=== PATIENT | male | born 1945 | race Caucasian/White ===

== ENCOUNTER 2016-11-20 06:56 | Observation (INO) | payer MEDICARE, OTHER ==
[~2016-11-20] VITALS: Ht 177.8 cm; Wt 101.0 kg
[2016-11-20 07:32] LABS: BASO % 0.2 % (0.0-1.0); EOS # 0.1 K/mm3 (0.0-0.50); EOS % 1.5 % (0.0-3.0); LARGE UNSTAINED CELL # 0.1 K/mm3 (0.0-0.4); LARGE UNSTAINED CELL % 1.4 % (0.0-4.0); LYMPH # 1.2 K/mm3 (1.5-4.5); LYMPH % 12.4 % (24.0-44.0); MEAN CORPUSCULAR HEMOGLOBIN 30.8 pg (27.0-33.0); MEAN CORPUSCULAR HGB CONC 33.5 g/dl (32.0-36.5); MEAN CORPUSCULAR VOLUME 91.9 fl (80.0-96.0); MONO # 0.6 K/mm3 (0.0-0.8); MONO % 6.7 % (0.0-5.0); NEUTROPHILS # 6.9 K/mm3 (1.8-7.7); NEUTROPHILS % 77.8 % (36.0-66.0); PLATELET COUNT, AUTOMATED 171 k/mm3 (150-450); WHITE BLOOD COUNT 8.8 K/mm3 (4.0-10.0)
[2016-11-20] MEDS ORDERED: [UNRECOGNIZED DRUG - OTHER] (07:39)
[2016-11-20] MEDS ORDERED: FLUT11IN INH ×2 (07:39→08:03)
[2016-11-20] MEDS ORDERED: K-TA10TA2 PO (07:39)
[2016-11-20] MEDS ORDERED: MONT10TA2 INH (07:39)
[2016-11-20] MEDS ORDERED: ALLO15TA PO (07:39)
[2016-11-20] MEDS ORDERED: VITA50003 PO (07:39)
[2016-11-20] MEDS ORDERED: ASPI32ECTA PO (07:39)
[2016-11-20] MEDS ORDERED: CARI350T20 PO (07:39)
[2016-11-20] MEDS ORDERED: AZIT250T3 PO ×2 (07:39→08:03)
[2016-11-20] MEDS ORDERED: BISO5TAB5 PO (07:39)
[2016-11-20] MEDS ORDERED: SIMV10TA2 PO ×2 (07:39→08:03)
[2016-11-20] MEDS ORDERED: METH4PACK (07:39)
[2016-11-20] MEDS ORDERED: PRIL20CA9 PO (07:39)
[2016-11-20] MEDS ORDERED: SERT50TA PO (07:39)
[2016-11-20 07:54] LABS: ANION GAP 9 MEQ/L (8-16); BLOOD UREA NITROGEN 14 MG/DL (7-18); CALCIUM LEVEL 8.5 MG/DL (8.8-10.2); CARBON DIOXIDE LEVEL 29 MEQ/L (21-32); CHLORIDE LEVEL 106 MEQ/L (98-107); CREATININE FOR GFR 1.09 MG/DL (0.70-1.30); GLOMERULAR FILTRATION RATE > 60.0 (>42); GLUCOSE, FASTING 113 MG/DL (83-110); MAGNESIUM LEVEL 2.3 MG/DL (1.8-2.4); POTASSIUM SERUM 3.6 MEQ/L (3.5-5.1); SODIUM LEVEL 144 MEQ/L (136-145)
[2016-11-20] MEDS ORDERED: ZYLO300T4 PO (07:55)
[2016-11-20] MEDS ORDERED: DRIS50002 PO (08:03)
[2016-11-20] MEDS ORDERED: OMEG100011 PO (08:03)
[2016-11-20] MEDS ORDERED: PROA1AER INH (08:03)
[2016-11-20] MEDS ORDERED: IBUP60TA PO (08:03)
[2016-11-20] MEDS ORDERED: ASPI325T PO (08:03)
[2016-11-20] MEDS ORDERED: MONT10TA2 PO (08:03)
[2016-11-20] MEDS ORDERED: SERT25TA PO (08:03)
[2016-11-20] MEDS ORDERED: CHLO1CAP PO (08:03)
[2016-11-20] MEDS ORDERED: OMEP20CA3 PO (08:03)
[2016-11-20] MEDS ORDERED: NAPR500T2 PO (08:03)
[2016-11-20] MEDS ORDERED: VITMTA PO (08:03)
[2016-11-20] MEDS ORDERED: ACET50TAOT PO (08:03)
--- NOTE | 2016-11-20 08:08 | REP ---
Portable chest x-ray: Single view. History: Syncope. Comparison chest x-ray is from October 07, 2014. Findings: There is right perihilar linear fibrosis again noted. There is some linear fibrosis in the left base as well also unchanged from the comparison study. The lungs are exposed at a relatively low level of inspiration as before. No infiltrate or effusion is seen. Pulmonary vasculature is not increased. Heart is not felt to be enlarged. The thoracic aorta is ectatic and somewhat tortuous, unchanged. Impression: No acute disease. Bilateral parenchymal fibrosis unchanged. Relatively low level of inspiration. Signed by Juan Amin MD 11/20/2016 10:43 A
[2016-11-20] MEDS: ASPIRIN 325 MG TAB PO SCH (09:00)
[2016-11-20] MEDS ORDERED: ALLOPURINOL 300 MG TAB PO SCH (09:00)
[2016-11-20] MEDS ORDERED: ACETAMINOPHEN 500 MG TAB PO PRN (09:30)
[2016-11-20] MEDS ORDERED: ONDANSETRON 4MG/2ML VIAL (J2405) IV PRN (09:30)
[2016-11-20 09:45] VITALS: BP 123/77
[2016-11-20] MEDS: SERTRALINE HCL 25 MG TABLET PO SCH (10:48)
[2016-11-20] MEDS: BISOPROLOL FUMARATE 5 MG TAB PO SCH (10:48)
[2016-11-20] MEDS: OMEPRAZOLE 20 MG CAP PO SCH (10:49)
[2016-11-20] MEDS: ENOXAPARIN 40 MG/0.4 ML SYRINGE (J1650) SC SCH (10:50)
[2016-11-20 12:00] VITALS: BP_SYST 103; BP_SYST 118; BP_SYST 120; BP_DIAS 62; BP_DIAS 65; BP_DIAS 72
[2016-11-20] MEDS: SENOKOT S TAB PO SCH ×2 (12:13→21:02)
[2016-11-20] MEDS ORDERED: AZITHROMYCIN 250 MG TAB PO ONE (14:45)
[2016-11-20] MEDS ORDERED: MECLIZINE 25 MG TABLET PO PRN (14:45)
[2016-11-20 16:00] VITALS: BP 138/79
--- NOTE | 2016-11-20 16:20 | REP ---
CT HEAD WITHOUT CONTRAST: HISTORY: Syncope. There is no intraparenchymal hemorrhage, mass or midline shift. The ventricular system and cortical sulci are dilated consistent with minimal volume loss. There is no extracerebral collection. The visualized sinuses are clear. IMPRESSION: Minimal volume loss. Signed by Quintin Rodríguez MD 11/20/2016 04:20 P
[2016-11-20] MEDS: ALBUTEROL SULFATE 2.5 MG/0.5 ML INH NEB SOLN NEB SCH ×2 (16:25→23:49)
--- NOTE | 2016-11-20 16:25 | REP ---
CAROTID ULTRASOUND: Real-time ultrasound evaluation and duplex Doppler interrogation of the extracranial carotid vasculature is performed. There is mild plaquing and narrowing in both carotid bulbs extending into the internal and external carotid arteries. Luminal narrowing is less than 50%. There is no evidence of hemodynamically significant stenosis of either internal carotid artery. Normal flow velocities are seen. The vertebral arteries demonstrate normal direction of flow. RIGHT LEFT Peak systolic velocity ICA 53.5 cm/s 41.7 cm/s End diastolic velocity ICA 18.4 cm/s 18.7 cm/s Peak systolic velocity CCA 72.8 cm/s 68.2 cm/s Peak systolic velocity ECA 78.4 cm/s 64.5 cm/s ICA/CCA ratio 0.73 0.61 IMPRESSION: Bilateral luminal narrowing of the internal carotid arteries less than 50%. No evidence of hemodynamically significant stenosis. Signed by Dante Gallo MD 11/20/2016 04:17 P
[2016-11-20 18:00] VITALS: BP 126/72
[2016-11-20 20:00] VITALS: BP_SYST 104; BP_SYST 116; BP_SYST 129; BP_DIAS 66; BP_DIAS 73; BP_DIAS 86
[2016-11-20] MEDS: FLUTICASONE HFA 110 MCG 12 GM INHALER (FLOVENT) INH SCH (20:04)
[2016-11-20] MEDS ORDERED: SIMVASTATIN 10 MG TAB PO SCH (21:00)
[2016-11-20] MEDS ORDERED: MONTELUKAST 10 MG TAB PO SCH (21:00)
[2016-11-20] MEDS: LIBRAX PO SCH (21:02)
[2016-11-21] VITALS: BP 118/79
[2016-11-21 04:00] VITALS: BP 117/75
[2016-11-21 05:44] LABS: BASO % 0.1 % (0.0-1.0); EOS % 0.4 % (0.0-3.0); LARGE UNSTAINED CELL # 0.1 K/mm3 (0.0-0.4); LARGE UNSTAINED CELL % 1.9 % (0.0-4.0); LYMPH # 0.7 K/mm3 (1.5-4.5); LYMPH % 10.5 % (24.0-44.0); MEAN CORPUSCULAR HEMOGLOBIN 29.7 pg (27.0-33.0); MEAN CORPUSCULAR HGB CONC 33.2 g/dl (32.0-36.5); MEAN CORPUSCULAR VOLUME 89.3 fl (80.0-96.0); MONO # 0.3 K/mm3 (0.0-0.8); NEUTROPHILS # 5.2 K/mm3 (1.8-7.7); PLATELET COUNT, AUTOMATED 161 k/mm3 (150-450); RED CELL DISTRIBUTION WIDTH 12.8 % (11.5-14.5); WHITE BLOOD COUNT 6.3 K/mm3 (4.0-10.0)
[2016-11-21 05:56] LABS: ANION GAP 8 MEQ/L (8-16); BLOOD UREA NITROGEN 10 MG/DL (7-18); CALCIUM LEVEL 7.7 MG/DL (8.8-10.2); CARBON DIOXIDE LEVEL 26 MEQ/L (21-32); CHLORIDE LEVEL 109 MEQ/L (98-107); CREATININE FOR GFR 0.83 MG/DL (0.70-1.30); GLOMERULAR FILTRATION RATE > 60.0 (>42); GLUCOSE, FASTING 105 MG/DL (83-110); POTASSIUM SERUM 3.4 MEQ/L (3.5-5.1); SODIUM LEVEL 143 MEQ/L (136-145)
[2016-11-21] MEDS: FLUTICASONE HFA 110 MCG 12 GM INHALER (FLOVENT) INH SCH (07:55)
[2016-11-21 08:00] VITALS: BP 120/78
[2016-11-21] MEDS ORDERED: POTASSIUM CHLORIDE 10 MEQ SR TABLET PO ONE (08:00)
[2016-11-21] MEDS ORDERED: SODIUM CHLORIDE 0.9% 1000 ML IV ONE (08:00)
--- NOTE | 2016-11-21 08:59 | ECGEPIP ---
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
[2016-11-21] MEDS ORDERED: AZITHROMYCIN 250 MG TAB PO SCH (09:00)
[2016-11-21] MEDS: SERTRALINE HCL 25 MG TABLET PO SCH (09:08)
[2016-11-21] MEDS: ASPIRIN 325 MG TAB PO SCH (09:08)
[2016-11-21] MEDS: LIBRAX PO SCH (09:08)
[2016-11-21 09:09] VITALS: BP 120/78
[2016-11-21] MEDS: ENOXAPARIN 40 MG/0.4 ML SYRINGE (J1650) SC SCH (09:09)
[2016-11-21] MEDS: OMEPRAZOLE 20 MG CAP PO SCH (09:09)
[2016-11-21] MEDS: BISOPROLOL FUMARATE 5 MG TAB PO SCH (09:09)
[2016-11-21] MEDS: SENOKOT S TAB PO SCH (09:09)
[2016-11-21] MEDS ORDERED: MECL-68 PO (09:14)
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
--- NOTE | 2016-11-22 11:48 | ECHO ---
DATE OF PROCEDURE: 11/20/2016 HEIGHT: 70 inches. WEIGHT: 224 pounds. BODY SURFACE AREA: 2.2 meters squared. REFERRING PHYSICIAN: DR. Ramya Brady. INDICATIONS: Syncope. MEASUREMENTS: 2-D Measurements: RV - 3.7 cm LV - 5.0 cm Septum - 1.2 cm Posterior wall - 1.1 cm Aortic root - 3.8 cm LA - 4.4 cm LVEF - 75% Doppler Measurements: AV - 1.5 meters per second LVOT - 1.1 meters per second LVOT diameter - 2.1 cm MV-E - 100, A -120, E/A ratio 0.8 E prime 7, A prime 13, E/E prime ratio 14.3 PV - 0.8 meters per second Pulmonary artery acceleration time 116 milliseconds PASP - 27 mmHg. COMMENTS: Normal sinus rhythm without intraventricular conduction disturbance. Technically difficult study in light of the patient's body habitus but diagnostically useful information was still obtained. Mildly dilated left atrium but normal left ventricular size. Right heart chamber sizes were also normal. LV wall thickness was upper limits of normal to slightly hypertrophied. On real-time imaging from the parasternal and apical projections wall motion was symmetrical and hyperkinetic. Normal-appearing mitral valvular apparatus and leaflet excursion with no posterior systolic buckling. Three equal size aortic cusps of normal thickness and cusp separation. Mildly dilated aortic root but normal proximal ascending aorta diameter. No apparent intracardiac mass or pericardial effusion. Color flow Doppler study taken from the parasternal and apical projection showed mild aortic, trace mitral and mild tricuspid insufficiency. Guided continuous wave Doppler of his aortic valve showed a normal peak systolic velocity against LV outflow tract obstruction. Pulsed and continuous wave Doppler of his LV inflow tract taken from the apical four-chamber projection showed normal diastolic filling velocities against mitral stenosis. There was more prominent late diastolic/atrial dependent filling pattern. Degree of diastolic dysfunction was confirmed using tissue Doppler of his mitral annulus. His current estimated mean left atrial pressure was mildly elevated at 16 mmHg. Pulsed and continous wave doppler of his pulmonary trunk showed a normal peak systolic velocity against RV outflow tract obstruction. Pulmonary artery acceleration time 116 milliseconds against an elevated pulmonary vascular resistance. CONCLUSIONS: Somewhat technically difficult study. Unable to detect a structural or functional abnormality to account for the patient's syncopal spell. Borderline concentric left ventricle hypertrophy with hyperkinetic wall motion. Mildly dilated left atrium with Doppler evidence of an impairment of LV diastolic function and current estimated mean left atrial pressure was at least mildly increased. Normal right heart chamber sizes and wall motion with current estimated pulmonary atrial pressure upper limits of normal. MTDD
--- NOTE | 2016-11-23 17:16 | DSES ---
DATE OF ADMISSION: 11/20/2016 DATE OF DISCHARGE: 11/21/2016 PRIMARY CARE PROVIDER: Dr. Prerna Gonzalez DISCHARGE DIAGNOSES: Syncope, possibly due to orthostatic hypotension. Vertigo, possibly due to vestibular neuronitis or labyrinthitis. History of hyperuricemia and renal stones. Gastroesophageal reflux disease. Hyperlipidemia. Asthma. Depression. Chronic back pain. Irritable bowel syndrome. Hypertension. DISCHARGE MEDICATIONS: - meclizine 25 mg by mouth twice a day as needed - acetaminophen 500 mg by mouth daily - albuterol sulfate two puff inhalation four times a day as needed - allopurinol 300 mg by mouth every two days - aspirin 325 mg by mouth daily - azithromycin 250 mg by mouth daily - bisoprolol 5 mg by mouth daily - [place] 350 mg by mouth daily - chlordiazepoxide/clidinium one capsule by mouth twice a day - fluticasone two puff inhalation twice a day - Montelukast 10 mg at bedtime - multivitamin one tablet daily - naproxen 500 mg by mouth as needed for pain - [place] 3 fatty acid one capsule by mouth daily - omeprazole 20 mg by mouth daily - sertraline 75 mg by mouth daily - simvastatin 10 mg at bedtime - vitamin D 50,000 units one capsule every two weeks HOSPITAL COURSE: This is a 71-year-old male who presented to the hospital with chief complaints of nausea, dizziness, weakness, followed by syncopal episode. The patient was recently diagnosed with upper respiratory tract infection by primary care provider and has been taking azithromycin at home. He was in his usual state of health when he went to bed. When he woke up on the day of admission, he had symptoms of nausea and dizziness, went back to sleep, woke up about an hour later, was sitting on the side of the bed and then stood up to go to the bathroom and fell down because of dizziness, lightheadedness and his wound him down on the floor and saw him pass out for 1-2 minutes and was brought to the emergency room. In the emergency department (ED), he had a CT scan of the head done, which was negative. He had a chest x-ray done, which did not show any acute disease. He had a carotid ultrasound done, which did not show any hemodynamically significant narrowing. He had an EKG done, which showed sinus rhythm without any abnormality. His orthostatic blood pressures were positive initially on admission, so he received some IV fluids. He was then subsequently admitted to telemetry unit for monitoring. After 24 hours of cardiac monitoring, did not show any cardiac arhythmia. His cardiac enzymes were cycled three times, which did not show any abnormality. He had an echocardiogram done, which did not show any structural or functional abnormality to account for the patient's syncopal spell. There was borderline concentric LVH and hyperkinetic wall motion. There was also some impairment of left ventricular diastolic function. The patient's symptoms resolved spontaneously, so it was felt his symptoms were related to orthostatic hypotension and possible vestibular neuronitis or labyrinthitis related to upper respiratory tract infection. On the day of discharge, the patient's vitals were stable. He was functionally at baseline. PHYSICAL EXAMINATION: VITAL SIGNS: Temperature 97, pulse 74, respiratory rate 18, blood pressure 120/78, pulse oximetry 98% in room air. GENERAL: Patient awake, alert, oriented times three, sitting up in bed in no acute distress. HEENT: Normocephalic, atraumatic. Moist mucous membranes. Anicteric eyes. CHEST: Clear to auscultation. CARDIOVASCULAR: S1, S2 regular. No rub, murmur or gallop. ABDOMEN: Soft, nontender. Bowel sounds present. EXTREMITIES: No edema. LABORATORY DATA: WBC 6.3, hemoglobin 14.1, platelets 161. Sodium 143, potassium 3.4, replaced, chloride 109, bicarbonate 26, BUN 10, creatinine 0.8, glucose 105, calcium 7.7. Cardiac enzymes negative. TSH 1.87. DISPOSITION: The patient is discharged home in stable condition. DISCHARGE INSTRUCTIONS: Patient to followup with primary care provider in 2 weeks. Regular diet. Activity as tolerated.
== END 2016-11-21 12:15 | disposition home or self-care (01) ==
LOC: EDBD 06:56 → M ED 07:37 → M ED INP 09:16 → M PCU 17:51
PROVIDERS: ADMIT Internal Medicine Nephrology; ATTEND Internal Medicine Nephrology
DX: R55 Syncope and collapse (principal); R42 Dizziness and giddiness; I10 Essential (primary) hypertension; E78.4 Other hyperlipidemia; K21.9 Gastro-esophageal reflux disease without esophagitis; J45.909 Unspecified asthma, uncomplicated; F41.9 Anxiety disorder, unspecified; F32.9 Major depressive disorder, single episode, unspecified; M54.5 Low back pain; Z79.82 Long term (current) use of aspirin; Z79.899 Other long term (current) drug therapy; Z87.891 Personal history of nicotine dependence
CPT/HCPCS: 36415; 70450; 71010; 80048; 82550; 82553; 83735; 84443; 84484; 85025; 87804; 93005; 93041; 93306; 93880; 94640; 94760; 96372; 97161; 99285; G0378; G8978; G8979; G8980; J1650

== ENCOUNTER → 2017-01-12 | Outpatient (REF) | payer MEDICARE, OTHER ==
[~2017-01-12] MED LIST: ACET50TAOT PO; ALLO15TA PO; ASPI325T PO; ASPI32ECTA PO; AZIT250T3 PO; BISO5TAB5 PO; CARI350T20 PO; CHLO1CAP PO; DRIS50002 PO; FLUT11IN INH; IBUP60TA PO; K-TA10TA2 PO; MECL-68 PO; METH4PACK; MONT10TA2 INH; MONT10TA2 PO; NAPR500T2 PO; OMEG100011 PO; OMEP20CA3 PO; PRIL20CA9 PO; PROA1AER INH; SERT25TA PO; SERT50TA PO; SIMV10TA2 PO; VITA50003 PO; VITMTA PO; ZYLO300T4 PO; [UNRECOGNIZED DRUG - OTHER]
== END ==
LOC: M LAB REF 15:47
PROVIDERS: ATTEND Surgery
DX: L72.11 Pilar cyst (principal)

== ENCOUNTER → 2017-01-25 | Outpatient (REF) | payer MEDICARE, OTHER | LOC: M LAB REF 12:46 | PROVIDERS: ATTEND Internal Medicine | DX: J02.9 Acute pharyngitis, unspecified (principal) ==

== ENCOUNTER → 2017-09-08 | Outpatient (CLI) | payer MEDICARE, OTHER ==
[2017-09-08 13:51] LABS: PSA SCREENING 0.93 NG/ML (< 4.0)
== END ==
LOC: M SMT 10:18
DX: Z12.5 Encounter for screening for malignant neoplasm of prostate (principal); N20.0 Calculus of kidney
CPT/HCPCS: G0103

== ENCOUNTER → 2018-10-04 | Outpatient (CLI) | payer MEDICARE, OTHER ==
[~2018-10-04] MED LIST changes: +ACET500T15 PO; -ACET50TAOT PO; +ASPI325T25 PO; -ASPI32ECTA PO; +AZIT-12 PO; -AZIT250T3 PO; +CARI1TAB7 PO; -CARI350T20 PO; -CHLO1CAP PO; +CHLO1CAP14 PO; -DRIS50002 PO; +DRIS50003 PO; +IBUP1TAB6 PO; -IBUP60TA PO; +NAPR-885 PO; -NAPR500T2 PO; -PROA1AER INH; +PROAAER10 INH; -VITA50003 PO; +VITA50005 PO; -ZYLO300T4 PO; +ZYLO300T6 PO
== END ==
LOC: M SMT 10:38
PROVIDERS: ATTEND Nurse Practitioner Family
DX: N20.0 Calculus of kidney (principal)
CPT/HCPCS: 36415; G0103

== ENCOUNTER → 2018-10-11 | Outpatient (CLI) | payer MEDICARE, OTHER ==
--- NOTE | 2018-10-11 10:17 | REP ---
Clinical: Nephrolithiasis. Technique: Single supine view of the abdomen and pelvis. Comparison: 09/08/2017. Findings: Bilateral intrarenal calculi (left greater than right) are again appreciated measuring up to approximately 6 mm diameter. Calcifications within the pelvis likely represent phleboliths and appear relatively stable. Further evaluation of the urinary tract system is limited due to overlying bowel gas with diffuse fecal stasis. No bowel obstruction. Skeletal structures demonstrate chronic scoliosis and degenerative changes. Impression: Findings suggest innumerable bilateral intrarenal calculi measuring up to 6 mm. Further evaluation is limited due to overlying fecal stasis. Electronically Signed by Alec Bear MD 10/11/2018 10:09 A
== END ==
LOC: M SMT 09:52
PROVIDERS: ATTEND Nurse Practitioner Family
DX: N20.0 Calculus of kidney (principal)
CPT/HCPCS: 74018; G0463

== ENCOUNTER 2019-04-19 09:09 | Day surgery (SDC) | payer MEDICARE, OTHER ==
[~2019-04-19] VITALS: Ht 177.8 cm; Wt 95.7 kg
[~2019-04-19 09:09] MED LIST changes: -ALLO15TA PO; +ALLO300T2 PO; +ASPI-1 PO; +ASPI-255 PO; -ASPI325T PO; -ASPI325T25 PO; +DICY10CA13 PO; +FLUT22IN INH; +NS 1,000 ML IV ONE; -OMEP20CA3 PO; +OMEP20CA4 PO; +SERT-141 PO; -SERT25TA PO; +SERT25TA85 PO; -SERT50TA PO; +SING10TA32 PO; +ZOLO25TA PO; +[UNRECOGNIZED DRUG - OTHER] PA
[2019-04-19] MEDS ORDERED: LIDOCAINE 2% INJ 100 MG/5 ML SDV (FOR ANES.) As Ordered ONE (09:13)
[2019-04-19] MEDS ORDERED: PROPOFOL 200 MG/20 ML VIAL As Ordered ONE (09:43)
[2019-04-19] MEDS ORDERED: ePHEDrine SULFATE 25 MG/5 ML(5MG/ML) SYRINGE As Ordered ONE (10:50)
--- NOTE | 2019-04-19 11:03 | ROOR ---
Patient Name: Shelton Mancuso Procedure Date: 04/19/2019 10:37 AM Date of : 1945 Age: 74 Room: [facility] Gender: Male Note Status: Finalized Procedure: Total Colonoscopy to Cecum + Biopsy Polypectomy Indications: Colon cancer screening in patient at increased risk: Colorectal cancer in father, High risk colon cancer surveillance: Personal history of colonic polyps, Last colonoscopy: 2014 Providers: Gio Bartlett MD Referring MD: Prerna Gonzalez DO Requesting Provider: Medicines: Monitored Anesthesia Care Complications: No immediate complications. Procedure: Pre-Anesthesia Assessment: - The heart rate, respiratory rate, oxygen saturations, blood pressure, adequacy of pulmonary ventilation, and response to care were monitored throughout the procedure. The Colonoscope was introduced through the anus and advanced to the cecum, identified by appendiceal orifice and ileocecal valve. The colonoscopy was performed without difficulty. The patient tolerated the procedure well. The quality of the bowel preparation was excellent. Findings: The perianal and digital rectal examinations were normal. Non-bleeding internal hemorrhoids were found during retroflexion. The hemorrhoids were small and Grade I (internal hemorrhoids that do not prolapse). A small polyp was found at 30 cm proximal to the anus. The polyp was sessile. The polyp was removed with a jumbo cold forceps. Resection and retrieval were complete. No other significant abnormalities were identified in a careful examination of the remainder of the colon. The exam was otherwise without abnormality on direct and retroflexion views. Impression: - Non-bleeding internal hemorrhoids. - One small polyp at 30 cm proximal to the anus, removed with a jumbo cold forceps. Resected and retrieved. - The examination was otherwise normal on direct and retroflexion views. - The exam was otherwise normal to the cecum. Recommendation: - Patient has a contact number available for emergencies. The signs and symptoms of potential delayed complications were discussed with the patient. Return to normal activities tomorrow. Written discharge instructions were provided to the patient. - High fiber diet. - Discharge patient to home. - Continue present medications. - Await pathology results. - Telephone GI clinic for pathology results in 1 week. - Repeat colonoscopy in 5 years for surveillance. - Return to referring physician. - Check Portal Online for Path Results.([email or web address]) Gio Bartlett MD Gio Bartlett MD 04/19/2019 11:03:30 AM Electronically signed by Gio Bartlett MD Number of Addenda: 0 Note Initiated On: 04/19/2019 10:37 AM Estimated Blood Loss: Estimated blood loss: none.
[2019-04-19 11:21] VITALS: BP 143/79
== END 2019-04-19 11:30 | disposition home or self-care (01) ==
LOC: M OPP 09:09
PROVIDERS: ATTEND Internal Medicine Gastroenterology
DX: Z12.11 Encounter for screening for malignant neoplasm of colon (principal); Z86.010 Personal history of colon polyps; Z80.0 Family history of malignant neoplasm of digestive organs; K64.0 First degree hemorrhoids; D12.5 Benign neoplasm of sigmoid colon; I10 Essential (primary) hypertension; E78.5 Hyperlipidemia, unspecified; M10.9 Gout, unspecified; K58.9 Irritable bowel syndrome, unspecified; K21.9 Gastro-esophageal reflux disease without esophagitis; R42 Dizziness and giddiness; M19.90 Unspecified osteoarthritis, unspecified site; F32.9 Major depressive disorder, single episode, unspecified; J45.909 Unspecified asthma, uncomplicated; Z87.442 Personal history of urinary calculi; Z87.891 Personal history of nicotine dependence; Z88.0 Allergy status to penicillin; Z79.82 Long term (current) use of aspirin; Z79.899 Other long term (current) drug therapy

== ENCOUNTER → 2019-10-03 | Outpatient (CLI) | payer MEDICARE, OTHER ==
[~2019-10-03] MED LIST changes: +BISO5TAB14 PO; -BISO5TAB5 PO; -MECL-68 PO; +MECL1TAB31 PO; -NS 1,000 ML IV ONE; +OMEP1CAP73 PO; -OMEP20CA4 PO; -SIMV10TA2 PO; +SIMV10TA21 PO
--- NOTE | 2019-10-03 11:35 | REPPI ---
Supine abdomen two views for renal calculi: Comparison is 10/11/2018. Multiple bilateral renal calculi are again identified, not significantly changed. There are calcifications inferiorly in the pelvis, likely phleboliths, unchanged. No calcifications are identified along the courses of the right or left ureters. This is unchanged. The bowel gas pattern is normal, unchanged. There is lumbar scoliosis convex right, unchanged. Impression: No interval change. Electronically Signed by Dante Kolb MD 10/03/2019 11:27 A
== END ==
LOC: M PLAIMG 11:17
PROVIDERS: ATTEND Urology
DX: N20.0 Calculus of kidney (principal)

== ENCOUNTER 2020-10-18 17:27 | Emergency (ER) | payer MEDICARE, OTHER ==
[~2020-10-18] VITALS: Ht 177.8 cm; Wt 99.1 kg
[~2020-10-18 17:27] MED LIST changes: +MONT10TA10 INH; +MONT10TA10 PO; -MONT10TA2 INH; -MONT10TA2 PO
--- OUTSIDE RECORDS SUMMARY | 2020-10-18 17:46 | CCD ---
Author Author [facility] Organization [facility] Address Unknown Phone Unavailable Care Team Providers Care Carnival Worker Name Role Phone Jorge White Unavailable PROBLEMS Type Condition ICD9-CM Code ZUT03-BL Code Onset Dates Condition S tatus SNOMED Code Notes Problem Kidney stones N20.0 Active 72558025 Problem Prostate cancer screening Z12.5 Active 207191 002 Problem Kidney stone 592.0 Active 08812814 Problem Prostate cancer screening V76.44 Active 622070 002 ALLERGIES Allergen (clinical drug ingredient) Drug/Non Drug Allergy do cumented on EMR Reaction Allergy Type Onset Date Status Penicillin (For Allergies Use Only) Rash Drug Allerg y Active ENCOUNTERS from 1945 to 2020-10-07 Encounter Location Date Provider Diagnosis [facility] [address] [place] [address] Sep Jorge White Kidney stones N20.0 and Prostate cancer screening Z12.5 IMMUNIZATIONS No Information SOCIAL HISTORY Sex Assigned At : Social History Observation Description Sex Assigned At Unknown Alcohol Screening: Question Answer Notes Did you have a drink containing alcohol in the past year? Ye s Points 1 Interpretation Negative How often did you have six or more drinks on one occas ion in the past year? Never (0 points) How many drinks did you have on a typica l day when you were drinking in the past year? 1 or 2 (0 points) How often did you have a drink containing alcohol in t he past year? Monthly or less (1 point) REASON FOR REFERRAL No Information VITAL SIGNS No information MEDICATIONS Medication SIG (Take, Route, Frequency, Duration) Notes Start Da te End Date Status Simvastatin 10 MG 1 tablet every evening Orally Once a day for 30 day (s) Active Chlordiaz/Clindium 5-2.5 as directed 3 times a day Active Aspirin 325 MG 1 tablet Orally Once a day for 30 day(s) Active Carisoprodol 350 MG 1 tablet as needed Orally as needed Active Flomax 0.4 MG 1 capsule Orally Once a day as needed when passi ng a stone Sep, Active ProAir HFA 108 (90 Base) MCG/ACT 2 puffs Inhalation as needed Active Singulair 10 MG 1 tablet in the evening Orally Once a day for 30 day( s) Active Multivitamins as directed Orally Act tri Vitamin D 1.25 MG 1 tablet Orally every other week for 30 day(s) Not-Taking Allopurinol 300 MG 1 tablet Orally every other day Nov, Not-Taking Hydrochlorothiazide 25 MG 1 tablet Orally Once a day for 30 day(s) Not-Taking Vitamin D3 1000 UNIT 4 capsule Orally every other week for 30 day(s) Active Urocit-K 10 10 MEQ (1080 MG) 1 tablet with meals Orall y Three times a day for 90 day(s) Not-Taking Zoloft 50 MG 1 tablet Orally Once a day for 30 day(s) Active Potassium Citrate 10 MEQ 1 cap(s) Orally Three times a day May, Not-Taking Flovent Diskus 50 MCG/BLIST 1 puff Inhalation as needed Active [place] 3 1000 MG as directed Orally A ctive Bisoprolol Fumarate 5 MG 1 tablet Orally Once a day for 30 day(s) Active Omeprazole 20mg 20mg as directed oral daily Active PROCEDURES No Information RESULTS No Results REASON FOR VISIT appt MEDICAL (GENERAL) HISTORY Type Description Date Medical History Hypertension Medical History Esophageal reflux Medical History IBS Medical History kidney stones Medical History hernia Medical History emphysema Medical History hyperuricemia Surgical History hernia Surgical History nephrectomy Surgical History vasectomy Surgical History cyst removed from scalp x 2 2011 Surgical History colonoscopy w/ polyp removal 2012 Surgical History colonoscopy with multiple polyp removal 02/2015 Surgical History left cataract removal 2010 Hospitalization History surgery related Goals Section No Information Health Concerns No Information MEDICAL EQUIPMENT No Information MENTAL STATUS No Information FUNCTIONAL STATUS No Information ASSESSMENTS Encounter Date Diagnosis Assessment Notes Treatment Notes Treatm ent Clinical Notes Sep, Kidney stones (ICD-10 - N20.0) Sep, Prostate cancer screening (ICD-10 - Z12.5) PLAN OF TREATMENT Treatment Notes Test Name Order Date [facility] Abdomen,Flat Plate (KUB) 2020-10-07 PSA SCREENING 2020-10-07 Next Appt Details Provider Name:Jorge White, 01:45:00 PM, [id number], [place], [address], Insurance Providers Payer Name Payer Address Payer Phone Insured Name Patient Relati onship to Insured Coverage Start Date Coverage End Date MEDICARE Part A and B [address] [facility] [id number] SHANE ESTEVES self [facility] [address] [address] [facility] [phone] ELENITA ESTEVES
--- OUTSIDE RECORDS SUMMARY | 2020-10-18 17:46 | CCD | Continuity of Care Document ---
Author Author Shelton GONZALEZ Organization Unknown Address [phone] [address] Phone [phone] Care Team Providers Care Urologic Nurse Name Role Phone Brannon Sapp MD AUT[facility] Unavailable Prerna Gonzalez DO AUTM Unavailable Brayden Ashley MD AUTM [phone] Jorge White M.D. AUTM [phone] Gio Bartlett MD AUTM [phone] [facility]M Problems Active Problems Provider Date Acute upper respiratory infection Prerna Gonzalez DO Onset: 08/31/2011 Asthma without status asthmaticus Prerna Gonzalez DO Onset: 08/31/2011 Needs influenza immunization Magda Borges FNP Onset: 08/13 Benign hypertensive heart disease without congestive h eart failure Prerna Gonzalez DO Onset: 08/31/2011 Social History Type Date Description Comments Sex Unknown ETOH Use consumes 1-2 glasses of wine per week Tobacco Use Start: Unknown End: Unknown Patient is a former smoker 1/2 PPD X 20 YRS, QUIT 1979 Allergies, Adverse Reactions, Alerts Active Allergies Reaction Severity Comments Date Penicillins rash 09/03/2009 Medications Active Medications SIG Qnty Indications Ordering Provide r Date Vitamin D (Ergocalciferol) 1.25mg (94030 Ut) Capsules take 1 capsule by mouth every other week 6caps Prerna Gonzalez DO 06/17/2020 Aspirin Ec 81mg Tablets DR 1 by mouth every day 30tabs Prerna Gonzalez DO 02/27/2020 Benzonatate 100mg Capsules take two capsule up to three times daily as needed for cough 30caps R05 Chayo Rivas, ANP 08/01/2019 Sertraline HCL 50mg Tablets 1 by mouth every day 90tabs Prerna Gonzalez,DO 05/17/2018 Sertraline HCL 25mg Tablets 1 by mouth every day with the 50mg of sertraline daily 90tabs Ugo Gonzalez,DO 05/17/2018 Tylenol 8 Hour Arthritis Pain 650mg Tablets ER 1 by mouth as needed every 8 hours 90tabs Prerna Gonzalez,DO 02/01/2018 Bentyl 10mg Capsules one by mouth three times a day before meals as needed for ibs 270caps Prerna Gonzalez,DO 08/16/2017 Montelukast Sodium 10mg Tablets 1 by mouth every day 90-tabs Prerna Gonzalez,DO 03/29/2014 Bisoprolol Fumarate 5mg Tablets 1 by by mouth daily 90tabs Prerna Gonzalez,DO 03/12/2014 Benadryl Allergy 25mg Capsules 1 - 2 qd prn Prerna Gonzalez,DO 05/22/2013 Proair HFA 108(90Base) mcg/Act Aer osol 2 puffs four times a day as needed 1units Prerna Gnozalez,DO 11/17/[address] 1 po qd Prerna Gonzalez,DO 03/24/2012 Soma 350mg Tablets 1 by mouth twice a day as needed 60tabs Prerna Gonzalez,DO 10/01/2010 Flovent HFA 110mcg/Act Aerosol 2 puff twice a day as needed 12gm Prerna Gonzalez DO 11/25/2009 Simvastatin 10mg Tablets 1 at at bedtime 90tabs Prerna Gonzalez,DO 09/03/2009 Multivitamins Tablets 1 po q d Prerna Gonzalez,DO 09/03/2009 [place]-3 1000mg Capsules 1 po qd Prerna Gonzalez,DO 09/03/2009 Vitamin D3 1000Unit Tablets 1 po qod Prerna Gonzalez,DO 09/03/2009 Meclizine HCL 25mg Tablets one tab by mouth every 8 hours as needed for dizziness 30tabs Prerna Lopez, DO Tamsulosin HCL 0.4mg Capsules 1 daily 1/2 hour after same meal Unknown Medications Administered in Office Medication SIG Qnty Indications Ordering Provider Date Administration Of Flu Vaccine Inj ection Prerna Lisa,DO 07/04/2019 Administration Of Flu Vaccine Inj ectdiane Gonzalez,DO 06/19/2016 Administration Of Flu Vaccine Inj ection Prerna Gonzalez,DO 06/13/2015 Administration Of Flu Vaccine Inj ection Prerna Gonzalez,DO 06/22/2014 Administration Of Flu Vaccine Inj ection Prerna Gonzalez,DO 06/23/2013 Administration Of Flu Vaccine Inj ebonie Gonzalez,DO 06/23/2012 Administration Of Flu Vaccine Inj Magda Youssef,DIRECTOR CASE MANAGEMENT 06/19/2011 Immunizations CPT Code Status Date Vaccine Lot # U-Flu Given 05/27/2020 Influenza,Unspecified [id number] Given 07/04/2019 Influenza Vaccin e Quadrivalent Preser/Antibiotic Free Im Use [id number] U-Flu Given 06/22/2018 Influenza,Unspecified U-PneuC Given 04/07/2017 Prevnar 13 [id number] Given 06/19/2016 Fluvirin Virus Vaccine 55519 01 Q2037 Given 06/13/2015 Fluvirin Virus Vaccine 96600 01 Q2037 Given 06/22/2014 Fluvirin Virus Vaccine 92199 21 Q2037 Given 06/23/2013 Fluvirin Virus Vaccine 93589 Given 04/04/2013 Zoster Vaccine [id number] 15025 Given 10/04/2012 Pneumovax 23 [id number] Q2037 Given 06/23/2012 Fluvirin Virus Vaccine Q2037 Given 06/19/2011 Fluvirin Virus Vaccine 38022 Refused 07/09/2020 Shingrix Zoster Vaccine (HZV), Recombinant, Subunit, Adjuvanted U-Td Refused 07/09/2020 Td(Adult)(Tetanus, Diphtheri a) unspecified 36743 Refused 07/04/2019 Tetanus/Diptheria(Td)Toxoids Preservative Free 18868 Refused 07/04/2019 Shingrix Zoster Vaccine (HZV), Recombinant, Subunit, Adjuvanted 52996 Refused 02/01/2018 Tetanus/Diptheria(Td)Toxoids Preservative Free 57284 Refused 08/03/2017 Influenza Vaccin e Quadrivalent Preser/Antibiotic Free Im Use Vital Signs Date Vital Result Comment 07/09/2020 9:56am BP Systolic 150 mmHg BP Diastolic 80 mmHg Height 70 inches 5'10" Weight 214.50 lb BMI (Body Mass Index) 30.8 kg/m2 02/27/2020 1:21pm BP Systolic 126 mmHg BP Diastolic 70 mmHg Heart Rate 69 /min Height 70 inches 5'10" Weight 220.00 lb O2 % BldC Oximetry 98 % RM Air BMI (Body Mass Index) 31.6 kg/m2 Results Test Acquired Date Facility Test Result H/L Range Note Laboratory test finding 07/09/2020 [facility] deyanira leonard Transporter Driver: [place] [id number] [phone] Sed Rate 3 mm/hr 0 - 15 Basic Metabolic Panel 07/09/2020 [facility] deyanira joyce Transporter Driver: [place] [address] [phone] Glucose 88 mg/dL 74 - 99 1 BUN 14 mg/dL 7 - 18 Creatinine 1.2 mg/dL 0.6 - 1.3 Sodium 143 mEq/L 136 - 145 Potassium 4.4 mEq/L 3.5 - 5.1 Chloride 106 mEq/L 98 - 107 Carbon Dioxide 33 mEq/L High 21 - 32 Calcium 9.1 mg/dL 8.5 - 10.1 GFR 59 mL/min Low >60 GFR >= 60 mL/min >60 2 Laboratory test finding 02/27/2020 [facility] deyanira Ramesh Transporter Driver: Dr Robert [place] [id number] [phone] PSA 0.59 ng/mL <4.00 3 Complete Blood Count 02/27/2020 [facility] de[facility]ira Sharp Transporter Driver: [place] [address] [phone] WBC 5.9 x10*3/UL 4.1 - 10.9 RBC 5.05 x10*6/UL 4.20 - 6.30 Hemoglobin 14.9 g/dL 12.0 - 18.0 Hematocrit 44.3 % 37.0 - 51.0 MCV 87.7 fL 80.0 - 97.0 MCH 29.5 pg 26.0 - 32.0 MCHC 33.6 g/dL 31.0 - 38.0 RDW 13.1 % 11.6 - 13.7 PLT 186 x10*3/UL 140 - 440 MPV 8.4 FL 7.8 - 11.0 Lymph % 23.5 % 10.0 - 58.5 Mid % 7.2 % 1.7 - 9.3 Neut % 69.3 % 37.0 - 92.0 Lymph # 1.4 x10*3/UL 0.6 - 4.1 Mid # 0.4 x10*3/UL 0.1 - 0.6 Neut # 4.1 x10*3/UL 2.0 - 7.8 Comprehensive Chem Profile 02/27/2020 [facility], Transporter Driver: [place] [address] [phone] Glucose 90 mg/dL 74 - 99 4 BUN 9 mg/dL 7 - 18 Creatinine 0.9 mg/dL 0.6 - 1.3 Sodium 144 mEq/L 136 - 145 Potassium 4.4 mEq/L 3.5 - 5.1 Chloride 106 mEq/L 98 - 107 Carbon Dioxide 30 mEq/L 21 - 32 Calcium 9.0 mg/dL 8.5 - 10.1 Alk. Phosphatase 67 mg/dL 46 - 116 Total Bilirubin 0.7 mg/dL 0.2 - 1.0 Ast (Sgot) 14 U/L Low 15 - 37 Alt (SGPT) 20 U/L 12 - 78 Albumin 4.0 g/dL 3.4 - 5.0 Total Protein 6.9 g/dL 6.4 - 8.2 A/G Ratio 1.38 CALC 1.00 - 1.90 GFR >= 60 mL/min >60 GFR >= 60 mL/min >60 5 Lipid Profile 02/27/2020 [facility] , Transporter Driver: [place] [address] [phone] Cholesterol 168 mg/dL 131 - 200 Triglycerides 66 mg/dL 30 - 150 HDL Cholesterol 73 mg/dL High 35 - 60 LDL (Calculated) 82 CALC 50 - 159 1 100-125 mg/dL PRE-DIABET ES/FASTING >126 mg/dL DIABETES/FASTING 2 CHRONIC KIDNEY DISEASE STAGI NG PER NKF STAGE I & II GFR >= 60 NORMAL TO MILDLY DECREASED STAGE III GFR 30-59 MODERATELY DECREASED STAGE IV GFR 15-29 SEVERELY DECREASED STAGE V GFR <15 VERY LITTLE GFR LEFT ESRD GFR <15 ON [place] 3 This assay was performed on the Siemens Dimension EXL using the B- Galactosidase/CPRG methodology and should not be compared interchangeably with other methods. The PSA should not be used alone as a screening test for the presence or absence of malignant disease. 4 100-125 mg/dL PRE-DIABET ES/FASTING >126 mg/dL DIABETES/FASTING 5 CHRONIC KIDNEY DISEASE STAGI NG PER NKF STAGE I & II GFR >= 60 NORMAL TO MILDLY DECREASED STAGE III GFR 30-59 MODERATELY DECREASED STAGE IV GFR 15-29 SEVERELY DECREASED STAGE V GFR <15 VERY LITTLE GFR LEFT ESRD GFR <15 ON [place] Procedures Date Code Description Status 07/09/2020 21355 Brief Emotional/Beha v Assessment W/ Scoring Doc Per Standard Inst Completed 07/09/2020 20162 EKG/Interpretation & Report Comp leted 04/19/2019 [id number] Colonoscopy Completed 02/13/2015 [id number] Colonoscopy Completed 10/18/2012 [id number] Colonoscopy Completed 09/26/2009 [id number] Bone Mineral Density Test Comple [employer] Description No Information Available Encounters Type Date Location Provider Dx Diagnosis Office Visit 07/09/2020 10:40a [facility], PJerome rodas,DO M25.552 Pain in left hip M50.93 Cervical disc disorder, unsp ecified, cervicothoracic region M48.061 Spinal stenosis, lumbar cherelle on without neurogenic luis I10 Essential (primary) hyperten yanira J45.991 Cough variant asthma F33.1 Major depressive disorder, r ecurrent, moderate F41.9 Anxiety disorder, unspecifie d Z87.442 Personal history of urinary calculi E55.9 Vitamin D deficiency, unspec ified Office Visit 02/27/2020 1:30p [facility], PJerome Gonzalez ,DO M50.93 Cervical disc disorder, unspecified, cervicothoracic region M48.061 Spinal stenosis, lumbar cherelle on without neurogenic luis I10 Essential (primary) hyperten yanira J45.991 Cough variant asthma F33.1 Major depressive disorder, r ecurrent, moderate F41.9 Anxiety disorder, unspecifie d Z87.442 Personal history of urinary calculi E55.9 Vitamin D deficiency, unspec ified E78.00 Pure hypercholesterolemia, u nspecified Z12.5 Encounter for screening for malignant neoplasm of prostate Assessments Date Code Description Provider 07/09/2020 M25.552 Pain in left hip Prerna Lisa,DO 07/09/2020 M50.93 Cervical disc disorder, unspecif ied, cervicothoracic region Prerna Lisa,DO 07/09/2020 M48.061 Spinal stenosis, lumbar region w ithout neurogenic claudicati Prerna Lisa,DO 07/09/2020 I10 Essential (primary) hypertension Prerna Lisa,DO 07/09/2020 J45.991 Cough variant asthma Prerna Lisa ,DO 07/09/2020 F33.1 Major depressive disorder, recur rent, moderate Prerna Lisa,DO 07/09/2020 F41.9 Anxiety disorder, unspecified [place] Lisa,DO 07/09/2020 Z87.442 Personal history of urinary calc stella Prerna Gonzalez,DO 07/09/2020 E55.9 Vitamin D deficiency, unspecifie d Prerna Gonzalez,DO 02/27/2020 M50.93 Cervical disc disorder, unspecif ied, cervicothoracic region Prerna Lisa,DO 02/27/2020 M48.061 Spinal stenosis, lumbar region w ithout neurogenic claudicati Prerna Lisa,DO 02/27/2020 I10 Essential (primary) hypertension Prerna Batistags,DO 02/27/2020 J45.991 Cough variant asthma Prerna Lisa ,DO 02/27/2020 F33.1 Major depressive disorder, recur rent, moderate Prerna Lisa,DO 02/27/2020 F41.9 Anxiety disorder, unspecified [place] Lisa,DO 02/27/2020 Z87.442 Personal history of urinary calc stella Prerna Gonzalez,DO 02/27/2020 E55.9 Vitamin D deficiency, unspecifie d Prerna Gonzalez,DO 02/27/2020 E78.00 Pure hypercholesterolemia, unspe cified Prerna Gonzalez,DO 02/27/2020 Z12.5 Encounter for screening for sarina gnant neoplasm of prostate Prerna Gonzalez DO Plan of Treatment Future Appointment(s):* 12/04/2020 11:00 am - Prerna Gonzalez DO at [facility] 07/09/2020 - Prerna Gonzalez DO* M25.552 Pain in left hip * M50.93 Cervical disc disorder, unspecified, cervicothoracic region * M48.061 Spinal stenosis, lumbar region without neurogenic claudicati * I10 Essential (primary) hypertension * J45.991 Cough variant asthma * F33.1 Major depressive disorder, recurrent, moderate * F41.9 Anxiety disorder, unspecified * Z87.442 Personal history of urinary calculi * E55.9 Vitamin D deficiency, unspecified * All * Comments:* Medicare Wellness: He's up to date on everything. He wants to hold off on getting the Shingrix shot. He is informed to get it. Functional Status Description No Information Available Mental Status Description No Information Available Referrals Description No Information Available
--- OUTSIDE RECORDS SUMMARY | 2020-10-18 17:47 | CCD ---
Author Author [facility] Organization [facility] Address Unknown Phone Unavailable Care Team Providers Care Certified Personal Finance Counselor Name Role Phone Lisa, Prerna DO Unavailable Unavailable Lisa, Prerna DO Unavailable Unavailable Lisa, Prerna DO Unavailable Unavailable Lisa, Prerna DO Unavailable Unavailable Lisa, Prerna DO Unavailable Unavailable Lisa, Prerna DO Unavailable Unavailable Lisa, Prerna DO Unavailable Unavailable Lisa, Prerna DO Unavailable Unavailable Lisa, Prerna DO Unavailable Unavailable Lisa, Preran DO Unavailable Unavailable Lisa, Prerna DO Unavailable Unavailable Lisa, Prerna DO Unavailable Unavailable Lisa, Prerna DO Unavailable Unavailable Lisa, Prerna DO Unavailable Unavailable Lisa, Prerna DO Unavailable Unavailable Lisa, Prerna DO Unavailable Unavailable Lisa, Prerna DO Unavailable Unavailable Lisa, Prerna DO Unavailable Unavailable Lisa, Prerna DO Unavailable Unavailable Lisa, Prerna DO Unavailable Unavailable Lisa, Prerna DO Unavailable Unavailable Lisa, Prerna DO Unavailable Unavailable Lisa, Prerna DO Unavailable Unavailable Lisa, Prerna DO Unavailable Unavailable Lisa, Prerna DO Unavailable Unavailable Lisa, Prerna DO Unavailable Unavailable Lisa, Prerna DO Unavailable Unavailable Lisa, Prerna DO Unavailable Unavailable Lisa, Prerna DO Unavailable Unavailable Lisa, Prerna DO Unavailable Unavailable Lisa, Prerna DO Unavailable Unavailable Lisa, Prerna DO Unavailable Unavailable Lisa, Prerna DO Unavailable Unavailable Lisa, Prerna DO Unavailable Unavailable Lisa, Prerna DO Unavailable Unavailable Lisa, Prerna DO Unavailable Unavailable Lisa, Prerna DO Unavailable Unavailable Lisa, Prerna DO Unavailable Unavailable Lisa, Prerna DO Unavailable Unavailable Lisa, Prerna DO Unavailable Unavailable Lisa, Prerna DO Unavailable Unavailable Lisa, Prerna DO Unavailable Unavailable Lisa, Prerna DO Unavailable Unavailable Lisa, Prerna DO Unavailable Unavailable Lisa, Prerna DO Unavailable Unavailable Lisa, Prerna DO Unavailable Unavailable Lisa, Rperna DO Unavailable Unavailable Lisa, Prerna DO Unavailable Unavailable Lisa, Prerna DO Unavailable Unavailable Lisa, Prerna DO Unavailable Unavailable Lisa, Prerna DO Unavailable Unavailable Lisa, Prerna DO Unavailable Unavailable Lisa, Prerna DO Unavailable Unavailable Lisa, Prerna DO Unavailable Unavailable Lisa, Prerna DO Unavailable Unavailable Lisa, Prerna DO Unavailable Unavailable Lisa, Prerna DO Unavailable Unavailable Lisa, Prerna DO Unavailable Unavailable Lisa, Prerna DO Unavailable Unavailable Lisa, Prerna DO Unavailable Unavailable Lisa, Prerna DO Unavailable Unavailable Lisa, Prerna DO Unavailable Unavailable Lisa, Prerna DO Unavailable Unavailable Lisa, Prerna DO Unavailable Unavailable Lisa, Prerna DO Unavailable Unavailable Lisa, Prerna DO Unavailable Unavailable Lisa, Prerna DO Unavailable Unavailable Lisa, Prerna DO Unavailable Unavailable Lisa, Prerna DO Unavailable Unavailable Lisa, Prerna DO Unavailable Unavailable Lisa, Prerna DO Unavailable Unavailable Lisa, Prerna DO Unavailable Unavailable Lisa, Prerna DO Unavailable Unavailable Lisa, Prerna DO Unavailable Unavailable Lisa, Prerna DO Unavailable Unavailable Lisa, Prerna DO Unavailable Unavailable Lisa, Prerna DO Unavailable Unavailable Lisa, Prerna DO Unavailable Unavailable Lisa, Prerna DO Unavailable Unavailable Lisa, Prerna DO Unavailable Unavailable Lisa, Prerna DO Unavailable Unavailable Lisa, Prerna DO Unavailable Unavailable Lisa, Prerna DO Unavailable Unavailable Lisa, Prerna DO Unavailable Unavailable Lisa, Prerna DO Unavailable Unavailable Lisa, Prerna DO Unavailable Unavailable Lisa, Prerna DO Unavailable Unavailable Lisa, Prerna DO Unavailable Unavailable Lisa, Prerna DO Unavailable Unavailable Lisa, Prerna DO Unavailable Unavailable Lisa, Prerna DO Unavailable Unavailable Lisa, Prerna DO Unavailable Unavailable Lisa, Prerna DO Unavailable Unavailable Lisa, Prerna DO Unavailable Unavailable Lisa, Prerna DO Unavailable Unavailable Lisa, Prerna DO Unavailable Unavailable Lisa, Prerna DO Unavailable Unavailable Lisa, Prerna DO Unavailable Unavailable Lisa, Prerna DO Unavailable Unavailable Lisa, Prerna DO Unavailable Unavailable Lisa, Prerna DO Unavailable Unavailable Lisa, Prerna DO Unavailable Unavailable Lisa, Prerna DO Unavailable Unavailable Lisa, Prerna DO Unavailable Unavailable Lisa, Prerna DO Unavailable Unavailable Lisa, Prerna DO Unavailable Unavailable Lisa, Prerna DO Unavailable Unavailable Lisa, Prerna DO Unavailable Unavailable Lisa, Prerna DO Unavailable Unavailable Lisa, Prerna DO Unavailable Unavailable Lisa, Prerna DO Unavailable Unavailable Lisa, Prerna DO Unavailable Unavailable Lisa, Prerna DO Unavailable Unavailable Lisa, Prerna DO Unavailable Unavailable Lisa, Prerna DO Unavailable Unavailable Lisa, Prerna DO Unavailable Unavailable Lisa, Prerna DO Unavailable Unavailable Lisa, Prerna DO Unavailable Unavailable Lisa, Prerna DO Unavailable Unavailable Lisa, Prerna DO Unavailable Unavailable Lisa, Prerna DO Unavailable Unavailable Lisa, Prerna DO Unavailable Unavailable Lisa, Prerna DO Unavailable Unavailable Lisa, Prerna DO Unavailable Unavailable Lisa, Prerna DO Unavailable Unavailable Lisa, Prerna DO Unavailable Unavailable Lisa, Prerna DO Unavailable Unavailable Lisa, Prerna DO Unavailable Unavailable Lisa, Prerna DO Unavailable Unavailable Lisa, Prerna DO Unavailable Unavailable Lisa, Prerna DO Unavailable Unavailable Lisa, Prerna DO Unavailable Unavailable Lisa, Prerna DO Unavailable Unavailable Lisa, Prerna DO Unavailable Unavailable Lisa, Prerna DO Unavailable Unavailable Lisa, Prerna DO Unavailable Unavailable Lisa, Prerna DO Unavailable Unavailable Lisa, Prerna DO Unavailable Unavailable Lisa, Prerna DO Unavailable Unavailable Lisa, Prerna DO Unavailable Unavailable Lisa, Prerna DO Unavailable Unavailable Lisa, Prerna DO Unavailable Unavailable Lisa, Prerna DO Unavailable Unavailable Lisa, Prerna DO Unavailable Unavailable KYLE, J Chayo ANP Unavailable Unavailable KYLE, J Chayo ANP Unavailable Unavailable KYLE, J Chayo ANP Unavailable Unavailable KLYE, J Chayo ANP Unavailable Unavailable KYLE, J Chayo ANP Unavailable Unavailable KYLE, J Chayo ANP Unavailable Unavailable KYLE, J Chayo ANP Unavailable Unavailable KYLE, J Chayo ANP Unavailable Unavailable KYLE, J Chayo ANP Unavailable Unavailable KYLE, J Chayo ANP Unavailable Unavailable KYLE, J Chayo ANP Unavailable Unavailable KYLE, J Chayo ANP Unavailable Unavailable KYLE, J Chayo ANP Unavailable Unavailable KYLE, J Chayo ANP Unavailable Unavailable KYLE, J Chayo ANP Unavailable Unavailable KYLE, J Chayo ANP Unavailable Unavailable KYLE, J Chayo ANP Unavailable Unavailable KYLE, J Chayo ANP Unavailable Unavailable KYLE, J Chayo ANP Unavailable Unavailable KYLE, J Chayo ANP Unavailable Unavailable KYLE, J Chayo ANP Unavailable Unavailable KYLE, J Chayo ANP Unavailable Unavailable KYLE, J Chayo ANP Unavailable Unavailable KYLE, J Chayo ANP Unavailable Unavailable KYLE, J Chayo ANP Unavailable Unavailable KYLE, J Chayo ANP Unavailable Unavailable KYLE, J Chayo ANP Unavailable Unavailable KYLE, J Chayo ANP Unavailable Unavailable KYLE, J Chayo ANP Unavailable Unavailable KYLE, J Chayo ANP Unavailable Unavailable KYLE, J Chayo ANP Unavailable Unavailable KYLE, J Chayo ANP Unavailable Unavailable KYLE, J Chayo ANP Unavailable Unavailable KYLE, J Chayo ANP Unavailable Unavailable KYLE, J Chayo ANP Unavailable Unavailable KYLE, J Chayo ANP Unavailable Unavailable KYLE, J Chayo ANP Unavailable Unavailable KYLE, J Chayo ANP Unavailable Unavailable KYLE, J Chayo ANP Unavailable Unavailable KYLE, J Chayo ANP Unavailable Unavailable KYLE, J Chayo ANP Unavailable Unavailable KYLE, J Chayo ANP Unavailable Unavailable KYLE, J Chayo ANP Unavailable Unavailable KYLE, J Chayo ANP Unavailable Unavailable KYLE, J Chayo ANP Unavailable Unavailable KYLE, J Chayo ANP Unavailable Unavailable KYLE, J Chayo ANP Unavailable Unavailable KYLE, J Chayo ANP Unavailable Unavailable KYLE, J Chayo ANP Unavailable Unavailable KYLE, J Chayo ANP Unavailable Unavailable KYLE, J Chayo ANP Unavailable Unavailable KYLE, J Chayo ANP Unavailable Unavailable KYLE, J Chayo ANP Unavailable Unavailable KYLE, J Chayo ANP Unavailable Unavailable KYLE, J Chayo ANP Unavailable Unavailable KYLE, J Chayo ANP Unavailable Unavailable KYLE, J Chayo ANP Unavailable Unavailable KYLE, J Chayo ANP Unavailable Unavailable KYLE, J Chayo ANP Unavailable Unavailable KYLE, J Chayo ANP Unavailable Unavailable KYLE, J Chayo ANP Unavailable Unavailable KYLE, J Chayo ANP Unavailable Unavailable KYLE, J Chayo ANP Unavailable Unavailable KYLE, J Chayo ANP Unavailable Unavailable KYLE, J Chayo ANP Unavailable Unavailable KYLE, J Chayo ANP Unavailable Unavailable Re-disclosure Warning The records that you are about to access may contain information from federally-assisted alcohol or drug abuse programs. If such information is present, then the following federally mandated warning applies: This information has been disclosed to you from records protected by federal confidentiality rules (42 CFR part 2). The federal rules prohibit you from making any further disclosure of this information unless further disclosure is expressly permitted by the written consent of the person to whom it pertains or as otherwise permitted by 42 CFR part 2. A general authorization for the release of medical or other information is NOT sufficient for this purpose. The Federal rules restrict any use of the information to criminally investigate or prosecute any alcohol or drug abuse patient.The records that you are about to access may contain highly sensitive health information, the redisclosure of which is protected by Article 27-F of the [facility] Public Health law. If you continue you may have access to information: Regarding HIV / AIDS; Provided by facilities licensed or operated by the [facility] Office of Mental Health; or Provided by the [facility] Office for People With Developmental Disabilities. If such information is present, then the following [facility] mandated warning applies: This information has been disclosed to you from confidential records which are protected by state law. State law prohibits you from making any further disclosure of this information without the specific written consent of the person to whom it pertains, or as otherwise permitted by law. Any unauthorized further disclosure in violation of state law may result in a fine or fdc sentence or both. A general authorization for the release of medical or other information is NOT sufficient authorization for further disc losure. Allergies and Adverse Reactions Type Description Substance Reaction Status Data Source(s ) Drug allergy Penicillin (For Allergies Use Only) Drug allergy Rash Active eCW1 ([facility]) Family History Family Member Name Family Member Gender Family Member Status Date o f Status Description Data Source(s) Unknown Male Problem MEDENT ([facility]) Unknown Unknown Problem MEDENT ([facility], ) Encounters Encounter Providers Location Date Indications Data Source(s ) [facility] [address] [place] [address] 10/08/2020 12:00:00 AM EST eCW1 ([facility]) Unknown [address] [facility] [place] [address] 10/07/2020 12:00:00 AM EST eCW1 ([facility]) Outpatient Attender: Prerna Curry 07/09 10:40:00 AM EDT MEDENT ([facility] ) Unknown [address] [facility] [place] [address] 03/01/2020 12:00:00 AM EDT eCW1 ([facility]) Outpatient Attender: Prerna Curry 02/26 01:30:00 PM EDT MEDENT ([facility] ) Outpatient Referrer: Prerna Gonzalez DO 10/06/2019 02:57:00 PM EST [facility] [address] [place] [address] 10/04/2019 12:00:00 AM EST eCW1 ([facility]) Outpatient Attender: Chayo Ibarra 08:00:00 AM EST MEDENT ([facility] ) Immunizations Vaccine Date Status Description Data Source(s) COVID-19 VACCINE, MRNA-1273, LNP-S (MODERNA)/PF 10/12/2020 1 2:00:00 AM EST completed [facility] Note that this Td is not adsorbed. 07/09/2020 10:09:00 AM EDT compl eted MEDENT ([facility]) Shingrix Zoster Vaccine (HZV), Recombinant, Subunit, A djuvanted 07/09/2020 10:09:00 AM EDT completed [facility] ([facility]) This CVX code allows reporting of a vacc ination when formulation is unknown (for example, when recording a Influenza vaccination when noted on a vaccination card) 05/27/2020 10:02:00 AM EDT completed MEDEN T ([facility]) INFLUENZA VIRUS VACCINE QUADRIVAL SPLIT 2020-21(65 YR UP)/PF 05/27/2020 12:00:00 AM EDT completed [facility] Medications Medication Brand Name Start Date Product Form Dose Route Admi nistrative Instructions Pharmacy Instructions Status Indications Reaction Description Data Source(s) montelukast 10 MG Oral Tablet MONTELUKAST SODIUM 09/16/2020 12:0 0:00 AM EST tablet 90 TAKE ONE TABLET BY MOUTH EVERY D AY TAKE ONE TABLET BY MOUTH EVERY DAY SOLD: 09/18/2020 [facility] 5 mg 09/16/2020 12:00:00 AM EST tablet 90 TAKE ONE TABLET BY MOUTH EVERY DAY TAKE ONE TABLET BY MOUTH EVERY DAY SOLD: 09/18/2020 [facility] 350 mg 09/16/2020 12:00:00 AM EST tablet 60 TAKE ONE TABLET BY MOUTH TWICE A DAY NEEDED MAXIMUM DAILY DOSE = 2 TAKE ONE TABLET BY MOUTH TWICE A DAY NEEDED MAXIMUM DAILY DOSE = 2 SOLD: 09/18/2020 [facility] 81 mg 06/27/2020 12:00:00 AM EDT tablet,delayed release (DR/EC) 30 TAKE ONE TABLET BY MOUTH EVERY DAY TAKE ONE TABLET BY MOUTH EVERY DAY SOLD: 10/09/2020 [facility] 81 mg 06/27/2020 12:00:00 AM EDT tablet,delayed release (DR/EC) 30 TAKE ONE TABLET BY MOUTH EVERY DAY TAKE ONE TABLET BY MOUTH EVERY DAY SOLD: 09/03/2020 [facility] 81 mg 06/27/2020 12:00:00 AM EDT tablet,delayed release (DR/EC) 30 TAKE ONE TABLET BY MOUTH EVERY DAY TAKE ONE TABLET BY MOUTH EVERY DAY SOLD: 06/30/2020 [facility] 1,250 mcg (50,000 unit) 06/18/2020 12:00:00 AM EDT capsule 6 TAKE 1 CAPSULE BY MOUTH EVERY OTHER WEEK TAKE 1 CAPSULE BY MOUTH EVERY OTHER WEEK SOLD: 06/19/2020 [facility] 1,250 mcg (50,000 unit) 06/18/2020 12:00:00 AM EDT capsule 6 TAKE 1 CAPSULE BY MOUTH EVERY OTHER WEEK TAKE 1 CAPSULE BY MOUTH EVERY OTHER WEEK SOLD: 09/26/2020 [facility] Ergocalciferol 30364 UNT Oral Capsule Vitamin D (Ergocalcife rol) 06/17/2020 12:00:00 AM EDT ORAL active M EDENT ([facility]) 350 mg 05/21/2020 12:00:00 AM EDT tablet 60 TAKE ONE TABLET BY MOUTH TWICE A DAY NEEDED MAXIMUM DAILY DOSE = 2 TAKE ONE TABLET BY MOUTH TWICE A DAY NEEDED MAXIMUM DAILY DOSE = 2 SOLD: 05/23/2020 [facility] 10 mg 05/21/2020 12:00:00 AM EDT capsule 270 TAKE ONE CAPSULE BY MOUTH THREE TIMES A DAY BEFORE MEALS NEEDED FOR IBS TAKE ONE CAPSULE BY MOUTH THREE TIMES A DAY BEFORE MEALS NEEDED FOR IBS SOLD: 05/23/2020 [facility] 10 mg 05/21/2020 12:00:00 AM EDT capsule 270 TAKE ONE CAPSULE BY MOUTH THREE TIMES A DAY BEFORE MEALS NEEDED FOR IBS TAKE ONE CAPSULE BY MOUTH THREE TIMES A DAY BEFORE MEALS NEEDED FOR IBS SOLD: 08/21/2020 [facility] 81 mg 02/28/2020 12:00:00 AM EDT tablet,delayed release (DR/EC) 30 TAKE ONE TABLET BY MOUTH EVERY DAY TAKE ONE TABLET BY MOUTH EVERY DAY SOLD: 03/06/2020 [facility] 81 mg 02/28/2020 12:00:00 AM EDT tablet,delayed release (DR/EC) 30 TAKE ONE TABLET BY MOUTH EVERY DAY TAKE ONE TABLET BY MOUTH EVERY DAY SOLD: 08/14/2020 [facility] 81 mg 02/28/2020 12:00:00 AM EDT tablet,delayed release (DR/EC) 30 TAKE ONE TABLET BY MOUTH EVERY DAY TAKE ONE TABLET BY MOUTH EVERY DAY SOLD: 05/08/2020 [facility] 81 mg 02/28/2020 12:00:00 AM EDT tablet,delayed release (DR/EC) 30 TAKE ONE TABLET BY MOUTH EVERY DAY TAKE ONE TABLET BY MOUTH EVERY DAY SOLD: 06/05/2020 [facility] 81 mg 02/28/2020 12:00:00 AM EDT tablet,delayed release (DR/EC) 30 TAKE ONE TABLET BY MOUTH EVERY DAY TAKE ONE TABLET BY MOUTH EVERY DAY SOLD: 04/03/2020 [facility] Aspirin 81 MG Delayed Release Oral Tablet Aspirin Ec 2019 12:00:00 AM EDT ORAL active MEDENT ( [facility]) 10 mg 02/26/2020 12:00:00 AM EDT capsule 270 TAKE ONE CAPSULE BY MOUTH THREE TIMES A DAY BEFORE MEALS TAKE ONE CAPSULE BY MOUTH THREE TIMES A DAY BEFORE MEALS SOLD: 02/28/2020 [facility] 10 mg 01/30/2020 12:00:00 AM EDT tablet 90 TAKE ONE TABLET BY MOUTH EVERY DAY AT BEDTIME TAKE ONE TABLET BY MOUTH EVERY DAY AT BEDTIME SOLD: 08/06/2020 [facility] 10 mg 01/30/2020 12:00:00 AM EDT tablet 90 TAKE ONE TABLET BY MOUTH EVERY DAY AT BEDTIME TAKE ONE TABLET BY MOUTH EVERY DAY AT BEDTIME SOLD: 01/31/2020 [facility] 25 mg 01/30/2020 12:00:00 AM EDT tablet 90 TAKE ONE TABLET BY MOUTH EVERY DAY ( TAKE WITH THE 50MG) TAKE ONE TABLET BY MOUTH EVERY DAY ( RANCHO E WITH THE 50MG) SOLD: 04/30/2020 [facility] 10 mg 01/30/2020 12:00:00 AM EDT tablet 90 TAKE ONE TABLET BY MOUTH EVERY DAY AT BEDTIME TAKE ONE TABLET BY MOUTH EVERY DAY AT BEDTIME SOLD: 04/30/2020 [facility] 25 mg 01/30/2020 12:00:00 AM EDT tablet 90 TAKE ONE TABLET BY MOUTH EVERY DAY ( TAKE WITH THE 50MG) TAKE ONE TABLET BY MOUTH EVERY DAY ( RANCHO E WITH THE 50MG) SOLD: 01/31/2020 [facility] 25 mg 01/30/2020 12:00:00 AM EDT tablet 90 TAKE ONE TABLET BY MOUTH EVERY DAY ( TAKE WITH THE 50MG) TAKE ONE TABLET BY MOUTH EVERY DAY ( RANCHO E WITH THE 50MG) SOLD: 08/06/2020 [facility] 350 mg 12/18/2019 12:00:00 AM EDT tablet 60 TAKE 1 TABLET BY MOUTH TWO TIMES A DAY NEEDED MAXIMUM DAILY DOSE = 2 TAKE 1 TABLET BY MOUTH TWO TIMES A DAY A S NEEDED MAXIMUM DAILY DOSE = 2 SOLD: 12/20/2019 [facility] 50 mg 12/05/2019 12:00:00 AM EDT tablet 90 TAKE ONE TABLET BY MOUTH EVERY DAY TAKE ONE TABLET BY MOUTH EVERY DAY SOLD: 03/06/2020 [facility] 50 mg 12/05/2019 12:00:00 AM EDT tablet 90 TAKE ONE TABLET BY MOUTH EVERY DAY TAKE ONE TABLET BY MOUTH EVERY DAY SOLD: 06/05/2020 [facility] 50 mg 12/05/2019 12:00:00 AM EDT tablet 90 TAKE ONE TABLET BY MOUTH EVERY DAY TAKE ONE TABLET BY MOUTH EVERY DAY SOLD: 09/03/2020 [facility] 50 mg 12/05/2019 12:00:00 AM EDT tablet 90 TAKE ONE TABLET BY MOUTH EVERY DAY TAKE ONE TABLET BY MOUTH EVERY DAY SOLD: 12/06/2019 [facility] Azithromycin 250 MG Oral Tablet Azithromycin 09/26/2019 12:00:00 AM EST completed MEDENT ([facility]) benzonatate 100 MG Oral Capsule BENZONATATE 09/26/2019 12:00:00 AM EST capsule 30 TAKE 2 CAPSULES BY MOUTH UP TO 3 TIMES D AILY NEEDED FOR COUGH TAKE 2 CAPSULES BY MOUTH UP TO 3 TIMES DAILY NEEDED FOR COUGH SOLD: 09/26/2019 [facility] 250 mg 09/26/2019 12:00:00 AM EST tablet 6 TAKE TWO TABLETS BY MOUTH AT ONCE ON THE FIRST DAY THEN TAKE ONE DAILY THEREAFTER TAKE TWO TABLETS BY MOUTH AT ONCE ON THE FIRST DAY THEN TAKE ONE DAILY THEREAFTER SOLD: 09/26/2019 [facility] 5 mg 09/25/2019 12:00:00 AM EST tablet 90 TAKE 1 TABLET BY MOUTH DAILY TAKE 1 TABLET BY MOUTH DAILY SOLD: 03/27/2020 [facility] montelukast 10 MG Oral Tablet MONTELUKAST SODIUM 09/25/2019 12:0 0:00 AM EST tablet 90 TAKE 1 TABLET BY MOUTH EVERY DAY TAKE 1 T ABLET BY MOUTH EVERY DAY SOLD: 06/26/2020 [facility] montelukast 10 MG Oral Tablet MONTELUKAST SODIUM 09/25/2019 12:0 0:00 AM EST tablet 90 TAKE 1 TABLET BY MOUTH EVERY DAY TAKE 1 T ABLET BY MOUTH EVERY DAY SOLD: 09/26/2019 [facility] 5 mg 09/25/2019 12:00:00 AM EST tablet 90 TAKE 1 TABLET BY MOUTH DAILY TAKE 1 TABLET BY MOUTH DAILY SOLD: 09/26/2019 [facility] 5 mg 09/25/2019 12:00:00 AM EST tablet 90 TAKE 1 TABLET BY MOUTH DAILY TAKE 1 TABLET BY MOUTH DAILY SOLD: 06/26/2020 [facility] montelukast 10 MG Oral Tablet MONTELUKAST SODIUM 09/25/2019 12:0 0:00 AM EST tablet 90 TAKE 1 TABLET BY MOUTH EVERY DAY TAKE 1 T ABLET BY MOUTH EVERY DAY SOLD: 12/26/2019 [facility] montelukast 10 MG Oral Tablet MONTELUKAST SODIUM 09/25/2019 12:0 0:00 AM EST tablet 90 TAKE 1 TABLET BY MOUTH EVERY DAY TAKE 1 T ABLET BY MOUTH EVERY DAY SOLD: 03/27/2020 [facility] 5 mg 09/25/2019 12:00:00 AM EST tablet 90 TAKE 1 TABLET BY MOUTH DAILY TAKE 1 TABLET BY MOUTH DAILY SOLD: 12/26/2019 [facility] 1,250 mcg (50,000 unit) 06/12/2019 12:00:00 AM EDT capsule 6 TAKE 1 CAPSULE BY MOUTH EVERY OTHER WEEK TAKE 1 CAPSULE BY MOUTH EVERY OTHER WEEK SOLD: 09/14/2019 [facility] 1,250 mcg (50,000 unit) 06/12/2019 12:00:00 AM EDT capsule 6 TAKE 1 CAPSULE BY MOUTH EVERY OTHER WEEK TAKE 1 CAPSULE BY MOUTH EVERY OTHER WEEK SOLD: 12/20/2019 [facility] 1,250 mcg (50,000 unit) 06/12/2019 12:00:00 AM EDT capsule 6 TAKE 1 CAPSULE BY MOUTH EVERY OTHER WEEK TAKE 1 CAPSULE BY MOUTH EVERY OTHER WEEK SOLD: 03/20/2020 [facility] 10 mg 01/31/2019 12:00:00 AM EDT capsule 270 TAKE ONE CAPSULE BY MOUTH THREE TIMES A DAY BEFORE MEALS TAKE ONE CAPSULE BY MOUTH THREE TIMES A DAY BEFORE MEALS SOLD: 11/23/2019 [facility] 25 mg 01/31/2019 12:00:00 AM EDT tablet 90 TAKE ONE TABLET BY MOUTH EVERY DAY WITH 50MG TAKE ONE TABLET BY MOUTH EVERY DAY WITH 50MG SOLD: 10/17/2019 [facility] 10 mg 01/31/2019 12:00:00 AM EDT tablet 90 TAKE ONE TABLET BY MOUTH AT BEDTIME TAKE ONE TABLET BY MOUTH AT BEDTIME SOLD: 10/17/2019 [facility] 50 mg 12/06/2018 12:00:00 AM EDT tablet 90 TAKE ONE TABLET BY MOUTH EVERY DAY TAKE ONE TABLET BY MOUTH EVERY DAY SOLD: 09/07/2019 [facility] Insurance Providers Payer name Policy type / Coverage type Policy ID Covered constitution party ID Covered constitution party's relationship to roque Policy Roque Plan Information [facility] [id number] [place] [id number] MEDICARE [id number] SP [id number] UMR O [id number] S [id number] MEDICARE C [id number] S [id number] MEDICARE [id number] SP [id number] A [place] [id number] [place]2 [id number] Umr Medigap Part B [id number] Family Dependent [id number] [place] [id number] Self [id number] [place]/[facility] (Old) Medigap Part B [id number] Family Dependent [id number] Medicare Natl Govt Serv Medicare Primary [id number] Self [id number] Umr ([place]) Medigap Part B [id number] Family Dependent [id number] UMR [facility] [id number] [facility] [id number] ANSI-Commercial [id number] ANSI-Medicare Part B [id number] [place] (Old) Medigap Part B [id number] Family Dependent [id number] Medicare Natl Govt Servic Medicare Primary [id number] Self [id number] [place] (Old) Medigap Part B [id number] Family Dependent [id number] Medicare Natl Govt Servic Medicare Primary [id number] Self [id number] [place] PPO O [id number] S [id number] MEDICARE C [id number] S [id number] A Umr [place] Ppo Medigap Part B [id number] Family Dependent [id number] Medicare [place] Govt Servic Medicare Primary [id number] Self [id number] [place] P[place] Medigap Part B [id number] Family Dependent [id number] Medicare [place] Govt Servic Medicare Primary [id number] Self [id number] [place] P[place] Medigap Part B [id number] Family Dependent [id number] Medicare [place] Govt Servic Medicare Primary [id number] Self [id number] [place] Medigap Part B [id number] Family Dependent [id number] [place] Medicare Primary [id number] Self [id number] [place] P[place] Medigap Part B [id number] Family Dependent [id number] Medicare Natl Govt Servic Medicare Primary [id number] Self [id number] [place] P[place] Medigap Part B [id number] Family Dependent [id number] Medicare [place] Govt Servic Medicare Primary [id number] Self [id number] [place] Ppo Medigap Part B [id number] Family Dependent [id number] Medicare Natl Govt Servic Medicare Primary Self [id number] A [id number] Surgeries/Procedures Procedure Description Date Indications Data Source(s) ECG ROUTINE ECG W/LEAST 12 LDS W/I&R 07/09/2020 12:00: 00 AM EDT RAND ([facility]) Brief Emotional/Behav Assessment W/ Scoring Doc Per Standard Inst 07/09/2020 12:00:00 AM EDT RAND ([facility] ) Office Visit, Est Pt., Level 2 FC 10/04/2019 12:00:00 AM EST eCW1 ([facility]) Office Visit, Est Pt., Level 3 PC 10/04/2019 12:00:00 AM EST eCW1 ([facility]) Results ID Date Data Source [id number] 07/11/2020 12:00:00 AM EDT [facility] ology Imaging Prerna Gonzalez DO Patient Name: SHANE [id number] [facility] Date of : 1945[address] Date of Exam: [place]/2020[place] [facility] [place] [id number]#: Fax: [phone] EXAM: HIP LEFT UNILATERAL (COMPLETE) X-RAYCLINICAL INFORMATION: Pain.Two views. These images were obtained using digital radiography.Comparison is 10/24/2005.The hip joint space is symmetric and relatively well maintained. There isno acute fracture or destructive osseous lesion.WANG Miller/Kingsley you for referring SHANE ESTEVES to our office. Electronically Signed - CAIN HURST DO 07/11/20 16:21 Name Value Range Interpretation Code Description Data Corinna rce(s) Supporting Document(s) ID Date Data Source [id number] 07/11/2020 12:00:00 AM EDT [facility] Prerna Gonzalez DO Patient Name: SHANE [id number] Date of : 1945[address] Date of Exam: 07/11/2020[place] [id number]#: Fax: [phone] EXAM: FEMUR LEFT X-RAYCLINICAL INFORMATION: Pain. No trauma.Two views. These images were obtained using digital radiography.There are no prior left femur xrays for comparison.There is no acute fracture or destructive osseous lesion.WANG Miller/Kingsley baker for referring SHANE ESTEVES to our office. Electronically Signed - CAIN HURST DO 07/11/20 16:21 Name Value Range Interpretation Code Description Data Corinna rce(s) Supporting Document(s) ID Date Data Source [id number] 07/09/2020 10:44:00 AM EDT [facility] ([facility]) Name Value Range Interpretation Code Description Data Corinna rce(s) Supporting Document(s) Glucose [Mass/volume] in Serum or Plasma 88 mg/dL 74-99 [facility] ([facility]) 100-125 mg/dL PRE-DIABETES/FASTING >126 mg/dL DIABETES/FASTING Urea nitrogen [Mass/volume] in Serum or Plasma 14 mg/dL 7-18 [facility] ([facility]) Potassium [Moles/volume] in Serum or Plasma 4.4 meq/L 3.5-5.1 [facility] ([facility]) Sodium [Moles/volume] in Serum or Plasma 143 meq/L 136-145 [facility] ([facility]) Creatinine 1.2 mg/dL 0.6-1.3 [facility] ([facility]) Chloride [Moles/volume] in Serum or Plasma 106 meq/L 98-107 [facility] Calcium [Mass/volume] in Serum or Plasma 9.1 mg/dL 8.5-10.1 [facility] Carbon dioxide, total [Moles/volume] in Serum or Plasma 33 meq/L 21 -32 [facility] Glomerular filtration rate/1.73 sq M pre dicted among blacks [Volume Rate/Area] in Serum or Plasma by Creatinine-based formula (MDRD) Laboratory test result [facility] ([facility]) <content>CHRONIC KIDNEY DISEASE STAGING PER NKF</content>
<content></content>
<content>STAGE I & II GFR >= 60 NORMAL TO MILDLY DECREASED</content>
<content>STAGE III GFR 30-59 MODERATELY DECREASED</content>
<content>STAGE IV GFR 15-29 SEVERELY DECREASED</content>
<content>STAGE V GFR <15 VERY LITTLE GFR LEFT</content>
<content>ESRD GFR <15 ON PATIENT CARE COORDINATOR</content>
<content></content> Glomerular filtration rate/1.73 sq M pre dicted among non-blacks [Volume Rate/Area] in Serum or Plasma by Creatinine-based formula (MDRD) 59 mL/min [facility] ID Date Data Source [id number] 07/09/2020 10:44:00 AM EDT [facility] Name Value Range Interpretation Code Description Data Corinna rce(s) Supporting Document(s) Erythrocyte sedimentation rate by Westergren method 3 mm/hr 0-15 [facility] ([facility]) ID Date Data Source [id number] 02/27/2020 01:17:00 PM EDT [facility] ([facility]) Name Value Range Interpretation Code Description Data Corinna rce(s) Supporting Document(s) Prostate specific Ag [Mass/volume] in Serum or Plasma 0.59 ng/mL [facility] ([facility]) This assay was performed on the Siemens Dimension EXL using the B- Galactosidase/CPRG methodology and should not be compared interchangeably with other methods. The PSA should not be used alone as a screening test for the presence or absence of malignant disease. ID Date Data Source [id number] 02/27/2020 01:16:00 PM EDT [facility] ([facility]) Name Value Range Interpretation Code Description Data Corinna rce(s) Supporting Document(s) Cholesterol [Mass/volume] in Serum or Plasma 168 mg/dL 131-200 [facility] ([facility]) Triglyceride [Mass/volume] in Serum or Plasma 66 mg/dL 30-150 [facility] ([facility]) Cholesterol in HDL [Mass/volume] in Serum or Plasma 73 mg/dL 35-60 [facility] ([facility]) Cholesterol in LDL [Mass/volume] in Serum or Plasma by calcu lation 82 CALC 50-159 [facility] ([facility]) ID Date Data Source [id number] 02/27/2020 01:16:00 PM EDT [facility] Name Value Range Interpretation Code Description Data Corinna rce(s) Supporting Document(s) Creatinine 0.9 mg/dL 0.6-1.3 [facility]) Glucose [Mass/volume] in Serum or Plasma 90 mg/dL 74-99 [facility] ([facility]) 100-125 mg/dL PRE-DIABETES/FASTING >126 mg/dL DIABETES/FASTING Urea nitrogen [Mass/volume] in Serum or Plasma 9 mg/dL 7-18 [facility] ([facility]) Sodium [Moles/volume] in Serum or Plasma 144 meq/L 136-145 [facility] ([facility]) Potassium [Moles/volume] in Serum or Plasma 4.4 meq/L 3.5-5.1 [facility] ([facility]) Chloride [Moles/volume] in Serum or Plasma 106 meq/L 98-107 [facility] ([facility]) Carbon dioxide, total [Moles/volume] in Serum or Plasma 30 meq/L 21 -32 [facility] ([facility]) Alkaline phosphatase isoenzyme [Units/volume] in Serum or Pl asma 67 mg/dL 46-116 [facility] ([facility]) Total Bilirubin 0.7 mg/dL 0.2-1.0 [facility] ([facility]) Calcium [Mass/volume] in Serum or Plasma 9.0 mg/dL 8.5-10.1 [facility] ([facility]) Aspartate aminotransferase [Enzymatic activity/volume] in Serum or Plasma 14 U/L 15-37 [facility] ([facility] ) Alanine aminotransferase [Enzymatic activity/volume] in Seru m or Plasma 20 U/L 12-78 [facility] ([facility]) Albumin [Mass/volume] in Serum or Plasma 4.0 g/dL 3.4-5.0 [facility] ([facility]) A/G Ratio 1.38 CALC 1.00-1.90 [facility]) Glomerular filtration rate/1.73 sq M pre dicted among non-blacks [Volume Rate/Area] in Serum or Plasma by Creatinine-based formula (MDRD) Laboratory test result [facility] ([facility] ) Glomerular filtration rate/1.73 sq M pre dicted among blacks [Volume Rate/Area] in Serum or Plasma by Creatinine-based formula (MDRD) Laboratory test result [facility]) <content>CHRONIC KIDNEY DISEASE STAGING PER NKF</content>
<content></content>
<content>STAGE I & II GFR >= 60 NORMAL TO MILDLY DECREASED</content>
<content>STAGE III GFR 30-59 MODERATELY DECREASED</content>
<content>STAGE IV GFR 15-29 SEVERELY DECREASED</content>
<content>STAGE V GFR <15 VERY LITTLE GFR LEFT</content>
<content>ESRD GFR <15 ON PATIENT CARE COORDINATOR</content>
<content></content> Proteinase 3 Ab [Units/volume] in Serum 6.9 g/dL 6.4-8.2 [facility] ([facility]) ID Date Data Source [id number] 02/27/2020 01:16:00 PM EDT [facility] ([facility]) Name Value Range Interpretation Code Description Data Corinna rce(s) Supporting Document(s) Erythrocytes [#/volume] in Blood by Automated count 5.05 x10*6/UL 4.2 0-6.30 [facility] ([facility]) Leukocytes [#/volume] in Blood by Automated count 5.9 x10*3/UL 4.1-10 .9 [facility] ([facility]) MCV 87.7 fL 80.0-97.0 [facility]) Hematocrit [Volume Fraction] of Blood by Automated count 44.3 % 3 7.0-51.0 [facility] Hemoglobin [Mass/volume] in Blood 14.9 g/dL 12.0-18.0 [facility] ([facility]) MCH 29.5 pg 26.0-32.0 [facility] ([facility]) Erythrocyte distribution width [Ratio] by Automated count 13.1 % 11.6-13.7 [facility] ([facility]) MCHC 33.6 g/dL 31.0-38.0 [facility] ([facility]) Lymph % 23.5 % 10.0-58.5 [facility] ([facility]) Mid % 7.2 % 1.7-9.3 [facility] ([facility]) MPV 8.4 FL 7.8-11.0 [facility] ([facility]) Platelets [#/volume] in Blood by Automated count 186 x10*3/UL 140-440 [facility] ([facility]) Neut % 69.3 % 37.0-92.0 [facility] Mid # 0.4 x10*3/UL 0.1-0.6 [facility] ([facility]) Lymph # 1.4 x10*3/UL 0.6-4.[address] [facility] Neut # 4.1 x10*3/UL 2.0-7.8 [facility] Procedure Vital Signs ID Date Data Source UNK Name Value Range Interpretation Code Description Data Source(s) Body mass index (BMI) [Ratio] 30.8 kg/m2 30.8 k g/m2 [facility] Body weight 214.50 [lb_av] 214.50 [lb_av] [facility] ([facility]) Body height 70 [in_i] 70 [in_i] [facility] ([facility]) 5'10" Diastolic blood pressure 80 mm[Hg] 80 mm[Hg] [facility] ([facility]) Systolic blood pressure 150 mm[Hg] 150 mm[Hg] [facility] Body mass index (BMI) [Ratio] 31.6 kg/m2 31.6 k g/m2 [facility] ([facility]) Oxygen saturation in Arterial blood by Pulse oximetry 98 % 98 % [facility] ([facility]) RM Air Body weight 220.00 [lb_av] 220.00 [facility] Body height 70 [in_i] 70 [in_i] [facility] ([facility]) 5'10" Heart rate 69 /min 69 /min [facility] Diastolic blood pressure 70 mm[Hg] 70 mm[Hg] [facility] Systolic blood pressure 126 mm[Hg] 126 mm[Hg] [facility] Diastolic blood pressure mm[Hg] [facility] ([facility]) Systolic blood pressure 128 mm[Hg] 128 mm[Hg] e CW1 ([facility]) Body temperature 97.8 [degF] 97.8 [degF] [facility]1 ( [facility]) Respiratory rate 17 /min 17 /min [facility]CW1 ([facility]) Heart rate 67 /min 67 /min eCW1 ([facility]) Body mass index (BMI) [Ratio] 31.94 kg/m2 31.94 kg/m2 [facility] ([facility]) Body height 70 [in_us] 70 [in_us] eCW1 ([facility]) Body weight Measured 222.6 [lb_av] 222.6 [lb_av ] W1 ([facility]) Body mass index (BMI) [Ratio] 32.0 kg/m2 32.0 k g/m2 [facility] ([facility]) Body weight 223.00 [lb_av] 223.00 [lb_av] [facility] T ([facility]) Body height 70 [in_i] 70 [in_i] [facility] ([facility]) 5'10" Heart rate 70 /min 70 /min [facility] ([facility]) Diastolic blood pressure 86 mm[Hg] 86 mm[Hg] [facility] ([facility]) Systolic blood pressure 136 mm[Hg] 136 mm[Hg] [place] DEJESUS ([facility])
[2020-10-18] MEDS ORDERED: SING5CHW23 PO (17:49)
[2020-10-18] MEDS ORDERED: TAMS1CAP17 (17:49)
[2020-10-18] MEDS ORDERED: OXYC1TAB23 (17:49)
[2020-10-18 19:21] LABS: BASO % 0.3 % (0.0-1.0); EOS # 0.1 10^3/uL (0.0-0.5); EOS % 2.2 % (0.0-3.0); HEMATOCRIT 45.8 % (42.0-52.0); HEMOGLOBIN 14.7 g/dl (13.5-17.5); LYMPH # 1.2 10^3/uL (1.5-5.0); LYMPH % 17.8 % (24.0-44.0); MEAN CORPUSCULAR HEMOGLOBIN 29.5 pg (27.0-33.0); MEAN CORPUSCULAR HGB CONC 32.1 g/dl (32.0-36.5); MEAN CORPUSCULAR VOLUME 91.8 fl (80.0-96.0); MONO # 0.6 10^3/uL (0.0-0.8); MONO % 8.4 % (0.0-5.0); NEUTROPHILS # 4.6 10^3/uL (1.5-8.5); PLATELET COUNT, AUTOMATED 147 10^3/uL (150-450); RED BLOOD COUNT 4.99 10^6/uL (4.30-6.10); WHITE BLOOD COUNT 6.5 10^3/uL (4.0-10.0)
[2020-10-18 19:51] LABS: ALBUMIN 4.4 GM/DL (3.2-5.2); BILIRUBIN,DIRECT 0.2 MG/DL (0.0-0.2); BILIRUBIN,TOTAL 0.5 MG/DL (0.2-1.0); TOTAL PROTEIN 7.1 GM/DL (6.4-8.2)
[2020-10-18] MEDS ORDERED: NS 1,000 ML IV ONE (20:45)
[2020-10-18] MEDS ORDERED: KETOROLAC 30 MG/ML 1ML VIAL IV ONE (20:45)
--- NOTE | 2020-10-18 20:47 | REPVR ---
PROCEDURE INFORMATION: Exam: CT Abdomen And Pelvis Without Contrast Exam date and time: 10/18/2020 8:20 PM Age: 75 years old Clinical indication: Other: Hematuria; Additional info: Hematuria, history of stones TECHNIQUE: Imaging protocol: Computed tomography of the abdomen and pelvis without contrast. Radiation optimization: All CT scans at this facility use at least one of these dose optimization techniques: automated exposure control; mA and/or kV adjustment per patient size (includes targeted exams where dose is matched to clinical indication); or iterative reconstruction. COMPARISON: RI ABDOMEN 1 VIEW (KUB) 10/03/2019 11:27 AM FINDINGS: Lungs: Bibasilar atelectasis/scarring. Liver: Normal. No mass. Gallbladder and bile ducts: Normal. No calcified stones. No ductal dilation. Pancreas: Normal. No ductal dilation. Spleen: Normal. No splenomegaly. Adrenal glands: Normal. No mass. Kidneys and ureters: Multiple bilateral simple renal cysts measure up to 8.9 cm in the upper pole of the right kidney. Multiple bilateral nonobstructive renal calculi. Focally dilated distal left ureter immediately proximal to the left bladder base. Mild left hydroureteronephrosis in the remainder of the collecting system. Stomach and bowel: Mild diverticulosis is present in the distal colon. No diverticulitis. Appendix: No evidence of appendicitis. Intraperitoneal space: Unremarkable. No free air. No significant fluid collection. Vasculature: There is fusiform dilatation of the visualized ascending thoracic aorta which measures 4.3 cm. maximally. The aortoiliac vessels demonstrate mild atherosclerotic calcification. Lymph nodes: Unremarkable. No enlarged lymph nodes. Urinary bladder: Suggestion of mild thickening of the left posterolateral bladder base. Finding may represent small neoplasm. Reproductive: The prostate gland demonstrates mild hyperplasia. Bones/joints: Moderate to severe central spinal stenosis at L1-L2, moderate central spinal stenosis L2-L3, severe central spinal stenosis L3-L4, moderate central spinal stenosis L4-L5. Slight anterolisthesis of L3 on L4. S shaped scoliosis of the lumbar spine. Soft tissues: Unremarkable. Other findings: Osteoporosis. IMPRESSION: 1. There is fusiform dilatation of the visualized ascending thoracic aorta which measures 4.3 cm. maximally. 2. Multiple bilateral simple renal cysts measure up to 8.9 cm in the upper pole of the right kidney. Multiple bilateral nonobstructive renal calculi. 3. Focally dilated distal left ureter immediately proximal to the left bladder base. Mild left hydroureteronephrosis in the remainder of the collecting system. 4. Suggestion of mild thickening of the left posterolateral bladder base. Finding may represent small neoplasm. 5. Mild prostatic hyperplasia. 6. Mild diverticulosis is present in the distal colon. No diverticulitis. COMMENTS: Consistent with the [employer]'s Incidental Findings Committee white paper (J Am Arsalan Radiol 2018): Any incidental renal lesion less than 1 cm or classified as too small to characterize, or any incidental cystic renal lesion characterized as simple-appearing, is likely benign. No follow-up imaging is recommended for these lesions per consensus recommendations based on imaging criteria. Electronically signed by: Boone Mann On 10/18/2020 20:47:33 PM
[2020-10-18] MEDS ORDERED: PHENAZOPYRIDINE 100 MG TAB PO ONE (21:30)
[2020-10-18] MEDS ORDERED: CIPROFLOXACIN 500MG TABLET PO ONE (21:30)
[2020-10-18] MEDS ORDERED: NORCO 5/325MG TABLET (BULK FOR ED) PO ONE (21:30)
[2020-10-18] MEDS ORDERED: CIPR-249 PO (22:03)
[2020-10-18] MEDS ORDERED: HYDR-3713 PO (22:03)
[2020-10-18] MEDS ORDERED: PYRI1TAB5 PO (22:07)
[2020-10-18 22:30] VITALS: BP 187/93
== END 2020-10-18 22:25 | disposition home or self-care (01) ==
LOC: M ED 17:27
DX: N21.0 Calculus in bladder (principal); N13.4 Hydroureter; I10 Essential (primary) hypertension; E78.5 Hyperlipidemia, unspecified; Z88.0 Allergy status to penicillin; Z79.899 Other long term (current) drug therapy; Z79.82 Long term (current) use of aspirin; Z87.891 Personal history of nicotine dependence
CPT/HCPCS: 74176; 80047; 80076; 81001; 83690; 85025; 87086; 96361; 96374; 99284; J1885

== ENCOUNTER → 2020-11-06 | Outpatient (CLI) | payer MEDICARE, OTHER ==
[~2020-11-06] MED LIST changes: +CIPR-249 PO; +HYDR-3713 PO; +OXYC1TAB23; +PYRI1TAB5 PO; +SING5CHW23 PO; +TAMS1CAP17
--- NOTE | 2020-11-06 11:22 | REPPI ---
INDICATION: KIDNEY STONES. COMPARISON: 10/03/2019. TECHNIQUE: Two AP views of abdomen and pelvis performed. FINDINGS: Bowel gas pattern is unremarkable with no obstruction. There are multiple subcentimeter renal calculi throughout both kidneys once again. A calculus in the mid to lower right kidney measures 8 mm and has increased in size somewhat since the prior study. A calculus in the upper pole of the left kidney and in the lower pole the left kidney which are visualized on the prior study are either decreased in size or have passed since the prior exam. Two adjacent stones in the mid left kidney are slightly increased in size. Multiple phleboliths are seen in the pelvis. There are again degenerative changes of the spine with curvature toward the right. IMPRESSION: Multiple bilateral renal calculi as discussed in detail above. <Electronically signed by Dante Gallo > 11/06/20 [id number]
== END ==
LOC: M PLAIMG 09:29
PROVIDERS: ATTEND Urology
DX: N20.0 Calculus of kidney (principal); I87.8 Other specified disorders of veins; Z12.5 Encounter for screening for malignant neoplasm of prostate
CPT/HCPCS: 36415; 74018; G0103

== ENCOUNTER → 2020-11-06 | Outpatient (REF) | payer MEDICARE, OTHER | LOC: M PLALAB 09:24 | PROVIDERS: ATTEND Urology | DX: Z12.5 Encounter for screening for malignant neoplasm of prostate (principal) ==

== ENCOUNTER → 2020-11-14 | Outpatient (REF) | payer MEDICARE, OTHER ==
[2020-11-22 14:08] LABS: CA Oxalate Dihy 60 % (.); Ca Ox Monohydrate 40 % (.); Size 6x6 mm (.)
== END ==
LOC: M SMT 16:54
PROVIDERS: ATTEND Urology
DX: N20.0 Calculus of kidney (principal)
CPT/HCPCS: 82365; G0463

== ENCOUNTER → 2021-11-14 | Outpatient (CLI) | payer MEDICARE, OTHER ==
[~2021-11-14] MED LIST changes: -MONT10TA10 INH; -MONT10TA10 PO; +MONT10TA97 INH; +MONT10TA97 PO
== END ==
LOC: M PLAIMG 11:42
PROVIDERS: ATTEND Urology
DX: Z12.5 Encounter for screening for malignant neoplasm of prostate (principal); N20.0 Calculus of kidney
CPT/HCPCS: 36415; 74018; G0103

== ENCOUNTER → 2021-12-23 | Outpatient (CLI) | payer MEDICARE, OTHER | LOC: M PLAIMG 10:39 | PROVIDERS: ATTEND Internal Medicine | DX: M85.88 Other specified disorders of bone density and structure, other site (principal); R06.02 Shortness of breath ==

== ENCOUNTER → 2022-11-18 | Outpatient (CLI) | payer MEDICARE, OTHER ==
[~2022-11-18] MED LIST changes: +MONT-5 PO; -SING10TA32 PO
== END ==
LOC: M PLALAB 09:26
PROVIDERS: ATTEND Urology
DX: N20.0 Calculus of kidney (principal); Z12.5 Encounter for screening for malignant neoplasm of prostate; M47.816 Spondylosis without myelopathy or radiculopathy, lumbar region
CPT/HCPCS: 36415; 74018; G0103

== ENCOUNTER → 2022-12-04 | Outpatient (CLI) | payer MEDICARE, OTHER ==
[~2022-12-04] MED LIST changes: +ERGO500029; +VITA100093 PO
== END ==
LOC: M LABSMTC 08:04
PROVIDERS: ATTEND Anesthesiology
DX: Z01.818 Encounter for other preprocedural examination (principal); Z20.822 Contact with and (suspected) exposure to COVID-19

== ENCOUNTER 2022-12-09 07:52 | Day surgery (SDC) | payer MEDICARE, OTHER ==
[~2022-12-09] VITALS: Ht 177.8 cm; Wt 8440.4 kg
[~2022-12-09 07:52] MED LIST changes: +NS 1,000 ML IV ONE
[2022-12-09] MEDS ORDERED: LIDOCAINE 2% 100MG/5ML SDV (FOR ANES.) As Ordered ONE (09:17)
[2022-12-09] MEDS ORDERED: propofoL 200 MG/20 ML VIAL As Ordered ONE (09:17)
[2022-12-09 10:00] VITALS: BP 141/75
== END 2022-12-09 10:11 | disposition home or self-care (01) ==
LOC: M OPP 07:52
PROVIDERS: ATTEND Internal Medicine Gastroenterology
DX: Z12.11 Encounter for screening for malignant neoplasm of colon (principal); Z86.010 Personal history of colon polyps; D12.2 Benign neoplasm of ascending colon; K64.0 First degree hemorrhoids; K57.30 Diverticulosis of large intestine without perforation or abscess without bleeding; J45.909 Unspecified asthma, uncomplicated; Z87.442 Personal history of urinary calculi; Z79.02 Long term (current) use of antithrombotics/antiplatelets; Z79.1 Long term (current) use of non-steroidal anti-inflammatories (NSAID); Z79.51 Long term (current) use of inhaled steroids; Z79.899 Other long term (current) drug therapy; Z88.0 Allergy status to penicillin

== ENCOUNTER → 2023-08-21 | Outpatient (CLI) | payer MEDICARE, OTHER ==
[~2023-08-21] MED LIST changes: +CHLO1CAP PO; -CHLO1CAP14 PO; +DICY-61 PO; -DICY10CA13 PO; -K-TA10TA2 PO; +MECL-209 PO; -MECL1TAB31 PO; -NS 1,000 ML IV ONE; +POTA-165 PO
== END ==
LOC: M RAD 08:37
PROVIDERS: ATTEND Pain Medicine Interventional Pain Medicine
DX: M48.061 Spinal stenosis, lumbar region without neurogenic claudication (principal); M51.26 Other intervertebral disc displacement, lumbar region

== ENCOUNTER → 2023-09-02 | Outpatient (CLI) | payer MEDICARE, OTHER ==
[2023-09-02 19:15] LABS: BASO % 0.3 % (0.0-1.0); EOS # 0.1 10^3/uL (0.0-0.5); EOS % 0.9 % (0.0-3.0); HEMATOCRIT 45.3 % (42.0-52.0); LYMPH # 1.2 10^3/uL (1.5-5.0); LYMPH % 18.8 % (24.0-44.0); MEAN CORPUSCULAR HGB CONC 33.1 g/dl (32.0-36.5); MEAN CORPUSCULAR VOLUME 93.6 fl (80.0-96.0); MONO # 0.5 10^3/uL (0.0-0.8); MONO % 7.9 % (2.0-8.0); NEUTROPHILS # 4.6 10^3/uL (1.5-8.5); NEUTROPHILS % 71.8 % (36.0-66.0); PLATELET COUNT, AUTOMATED 175 10^3/uL (150-450); RED BLOOD COUNT 4.84 10^6/uL (4.30-6.10); WHITE BLOOD COUNT 6.3 10^3/uL (4.0-10.0)
[2023-09-02 19:20] LABS: ERYTHROCYTE SEDIMENTATION RATE 2 mm/hr (0-20)
[2023-09-02 19:32] LABS: C REACTIVE PROTEIN QUANTITATIV < 0.40 MG/DL (<1.0)
[2023-09-02 19:34] LABS: ALKALINE PHOSPHATASE 70 U/L (46-116); ALT/SGPT 17 U/L (7.0-40); AST/SGOT 18 U/L (<34); BILIRUBIN,TOTAL 0.5 MG/DL (0.3-1.2); BLOOD UREA NITROGEN 14 MG/DL (9-23); CALCIUM LEVEL 9.9 MG/DL (8.3-10.6); CARBON DIOXIDE LEVEL 28 MMOL/L (20-31); CHLORIDE LEVEL 108 MMOL/L (98-107); CREATININE FOR GFR 0.89 MG/DL (0.70-1.30); GLOMERULAR FILTRATION RATE > 60.0 (>42); GLUCOSE, FASTING 81 MG/DL (74-106); POTASSIUM SERUM 4.8 MMOL/L (3.5-5.1); RHEUMATOID FACTOR QUANT < 3.5 IU/ML (<14); SODIUM LEVEL 144 MMOL/L (136-145); TOTAL PROTEIN 6.6 G/DL (5.7-8.2)
== END ==
LOC: M PLALAB 15:27
PROVIDERS: ATTEND Orthopaedic Surgery
DX: M51.36 Other intervertebral disc degeneration, lumbar region (principal)

== ENCOUNTER → 2023-10-20 | Outpatient (CLI) | payer MEDICARE, OTHER | LOC: M RAD 10:08 | PROVIDERS: ATTEND Orthopaedic Surgery | DX: M51.36 Other intervertebral disc degeneration, lumbar region (principal) | CPT/HCPCS: 78306; A9503 ==

== ENCOUNTER → 2023-12-30 | Outpatient (CLI) | payer MEDICARE, OTHER ==
[~2023-12-30] MED LIST changes: +MONT5TAB7 PO; -SING5CHW23 PO
== END ==
LOC: M PLAIMG 15:14
PROVIDERS: ATTEND Urology
DX: N20.0 Calculus of kidney (principal); Z12.5 Encounter for screening for malignant neoplasm of prostate
CPT/HCPCS: 36415; 74018; G0103

== ENCOUNTER → 2024-12-25 | Outpatient (REF) | payer MEDICARE, OTHER ==
[~2024-12-25] MED LIST changes: +CARI-555 PO; -CARI1TAB7 PO
== END ==
LOC: M LAB REF 14:42
PROVIDERS: ATTEND Internal Medicine
DX: R10.816 Epigastric abdominal tenderness (principal); R63.4 Abnormal weight loss; R19.4 Change in bowel habit

== ENCOUNTER → 2025-01-08 | Outpatient (CLI) | payer MEDICARE, OTHER | LOC: M PLAIMG 10:51 | PROVIDERS: ATTEND Urology | DX: N20.0 Calculus of kidney (principal); Z12.5 Encounter for screening for malignant neoplasm of prostate | CPT/HCPCS: 36415; 74018; G0103 ==

== ENCOUNTER → 2025-01-09 | Outpatient (CLI) | payer MEDICARE, OTHER ==
[~2025-01-09] MED LIST changes: +GASTROGRAFIN SOLUTION 30ML As Ordered ONE; +ISOVUE-370 76% 100ML VIAL As Ordered ONE
== END ==
LOC: M RAD 12:01
PROVIDERS: ATTEND Internal Medicine
DX: R63.4 Abnormal weight loss (principal); R68.81 Early satiety; R10.816 Epigastric abdominal tenderness
CPT/HCPCS: 74177; Q9963; Q9967